=== PATIENT | female | born 1955 | race African-American/Black ===

== ENCOUNTER 2016-08-14 09:51 | Emergency (ER) | payer MEDICARE, MEDICAID ==
[~2016-08-14] VITALS: Ht 162.6 cm; Wt 66.1 kg
[~2016-08-14 09:51] MED LIST: ACET1TAB14 PO; CARI350T27 PO; GABA-531 PO; TEMA30CA PO
[2016-08-14] MEDS ORDERED: MORPHINE SULFATE 4 MG/ML CPJ (NOT FOR IM USE) IV STA (10:45)
[2016-08-14] MEDS ORDERED: SODIUM CHLORIDE 0.9% 1,000 ML IV ONE (10:45)
[2016-08-14] MEDS ORDERED: ONDANSETRON HCL 4MG/2ML VIAL IV STA (10:45)
[2016-08-14 10:59] LABS: BASOPHILS % 0.8 % (0.0-2.0); HEMATOCRIT. 36.1 % (36.0-48.0); HEMOGLOBIN. 12.3 g/dL (12.0-16.0); MEAN CORPUSCULAR HEMOGLOBIN 32.1 pg (28.0-32.0); MEAN CORPUSCULAR VOLUME 94.4 fL (81.0-99.0); MEAN PLATELET VOLUME 6.7 fl (7.4-10.4); MONOCYTES % 10.6 % (2.0-8.0); NEUTROPHILS % 68.6 % (40.0-76.0); PLATELET 268 x1000/uL (130-400); RED BLOOD CELL COUNT 3.82 mill/uL (4.2-5.4); RED CELL DISTRIBUTION WIDTH 15.7 % (11.6-14.6); WHITE BLOOD COUNT 8.8 x1000/uL (4.5-11.0)
[2016-08-14 11:14] LABS: ALANINE AMINOTRANSFERASE 12 IU/L (13-61); ALBUMIN 3.1 g/dL (3.4-5.0); ANION GAP 16; CALCIUM 8.9 mg/dL (8.5-10.1); CARBON DIOXIDE 24 mEq/L (21-32); CHLORIDE 104 mEq/L (98-107); INDEX HEMOLYSI 1 (1-3); INDEX ICTERIC 1 (1-4); INDEX LIPEMIC 1 (1-3); UREA NITROGEN BLOOD 9 mg/dL (7-21); eGFR > 60 mL/min (>60)
[2016-08-14 13:32] LABS: CLARITY URINE CLEAR (CLEAR); COLOR URINE YELLOW (YELLOW); GLUCOSE URINE NEGATIVE (NEGATIVE); KETONES URINE TRACE (NEGATIVE); LEUKOCYTE ESTERASE URINE NEGATIVE (NEGATIVE); NITRITE URINE NEGATIVE (NEGATIVE); OCCULT BLOOD URINE NEGATIVE (NEGATIVE); PROTEIN URINE TRACE (NEGATIVE)
[2016-08-14 14:11] LABS: MUCUS URINE 2+ /lpf (< = 2+)
[2016-08-14 14:12] LABS: BACTERIA URINE 1+; HYALINE CASTS URINE 0-5 /lpf; SQUAMOUS EPITHELIAL CELL URINE 1+ /lpf (RARE/1+); WBC URINE 0-2 /hpf (0-2)
[2016-08-14 14:13] LABS: RBC URINE NONE SEEN /hpf (0-2)
[2016-08-14 14:32] VITALS: BP 92/57
== END 2016-08-14 15:14 | disposition home or self-care (01) ==
LOC: ER 10:18
DX: R19.7 Diarrhea, unspecified (principal); R11.2 Nausea with vomiting, unspecified; R50.9 Fever, unspecified; M32.9 Systemic lupus erythematosus, unspecified; Z88.8 Allergy status to other drugs, medicaments and biological substances
CPT/HCPCS: 36415; 80053; 81001; 85025; 96361; 96374; 96375; 99285; J2270; J2405; J7030

== ENCOUNTER 2016-10-04 01:09 | Emergency (ER) | payer MEDICARE, MEDICAID ==
[~2016-10-04] VITALS: Ht 165.1 cm; Wt 63.0 kg
[2016-10-04] MEDS ORDERED: MORPHINE SULFATE 4 MG/ML CPJ (NOT FOR IM USE) IV STA (01:42)
[2016-10-04] MEDS ORDERED: ONDANSETRON HCL 4MG/2ML VIAL IV STA (01:42)
[2016-10-04] MEDS ORDERED: SODIUM CHLORIDE 0.9% 1,000 ML IV ONE (01:42)
[2016-10-04 02:00] LABS: BASOPHILS % 1.2 % (0.0-2.0); EOSINOPHILS % 4.1 % (0.0-5.0); HEMATOCRIT. 34.5 % (36.0-48.0); HEMOGLOBIN. 11.6 g/dL (12.0-16.0); LYMPHOCYTES % 49.4 % (20.0-50.0); MEAN CORPUSCULAR HEMOGLOBIN 31.6 pg (28.0-32.0); MEAN CORPUSCULAR VOLUME 94.2 fL (81.0-99.0); MEAN PLATELET VOLUME 6.5 fl (7.4-10.4); NEUTROPHILS % 34.3 % (40.0-76.0); PLATELET 393 x1000/uL (130-400); RED BLOOD CELL COUNT 3.66 mill/uL (4.2-5.4); RED CELL DISTRIBUTION WIDTH 15.6 % (11.6-14.6)
[2016-10-04 02:15] LABS: CARBON DIOXIDE 25 mEq/L (21-32); CHLORIDE 111 mEq/L (98-107); TROPONIN I < 0.02 ng/mL (0.00-0.04)
[2016-10-04] MEDS ORDERED: MORPHINE SULFATE 4 MG/ML CPJ (NOT FOR IM USE) IV ONE ×2 (03:15→05:30)
[2016-10-04 06:28] VITALS: BP 113/57
== END 2016-10-04 07:24 | disposition home or self-care (01) ==
LOC: ER 01:09 → CANBEDREQ 07:36
DX: R51 Headache (principal); R53.1 Weakness; I10 Essential (primary) hypertension; M19.90 Unspecified osteoarthritis, unspecified site; M32.9 Systemic lupus erythematosus, unspecified; Z98.890 Other specified postprocedural states; Z88.8 Allergy status to other drugs, medicaments and biological substances; W18.30XA Fall on same level, unspecified, initial encounter; Y93.01 Activity, walking, marching and hiking; Y92.000 Kitchen of unspecified non-institutional (private) residence as the place of occurrence of the external cause; Y99.8 Other external cause status
CPT/HCPCS: 36415; 71010; 80053; 84484; 85025; 93005; 96361; 96374; 96375; 96376; 99285; J2270; J2405; J7030

== ENCOUNTER 2016-11-02 05:53 | Emergency (ER) | payer MEDICARE, MEDICAID ==
[~2016-11-02] VITALS: Ht 157.5 cm; Wt 55.0 kg
[2016-11-02] MEDS ORDERED: SODIUM CHLORIDE 0.9% 500 ML IV ONE (06:19)
[2016-11-02] MEDS ORDERED: KETOROLAC 15MG/ML VIAL IV ONE (06:30)
[2016-11-02 07:03] LABS: BASOPHILS % 1.4 % (0.0-2.0); EOSINOPHILS % 4.4 % (0.0-5.0); HEMATOCRIT. 30.7 % (36.0-48.0); LYMPHOCYTES % 40.3 % (20.0-50.0); MEAN CORPUSCULAR HEMOGLOBIN 30.2 pg (28.0-32.0); MEAN CORPUSCULAR VOLUME 92.8 fL (81.0-99.0); MEAN PLATELET VOLUME 6.5 fl (7.4-10.4); MONOCYTES % 13.2 % (2.0-8.0); NEUTROPHILS % 40.7 % (40.0-76.0); PLATELET 281 x1000/uL (130-400); RED BLOOD CELL COUNT 3.31 mill/uL (4.2-5.4); RED CELL DISTRIBUTION WIDTH 16.1 % (11.6-14.6)
[2016-11-02 07:11] LABS: PARTIAL THROMBOPLASTIN TIME 28.8 sec (24.0-34.0); PROTHROMBIN TIME 10.4 sec
[2016-11-02 07:17] LABS: CARBON DIOXIDE 25 mEq/L (21-32); CHLORIDE 107 mEq/L (98-107)
[2016-11-02 07:20] LABS: TROPONIN I < 0.02 ng/mL (0.00-0.04)
[2016-11-02] MEDS ORDERED: MORPHINE SULFATE 2 MG/ML CPJ (NOT FOR IM USE) IV ONE (07:45)
[2016-11-02] MEDS ORDERED: ONDANSETRON HCL 4MG/2ML VIAL IV ONE (07:45)
[2016-11-02 10:59] VITALS: BP 120/77
== END 2016-11-02 11:40 | disposition home or self-care (01) ==
LOC: ER 05:53
DX: R52 Pain, unspecified (principal); M06.9 Rheumatoid arthritis, unspecified; M32.9 Systemic lupus erythematosus, unspecified; F17.290 Nicotine dependence, other tobacco product, uncomplicated; K75.9 Inflammatory liver disease, unspecified; Z90.89 Acquired absence of other organs; Z96.659 Presence of unspecified artificial knee joint; Z88.8 Allergy status to other drugs, medicaments and biological substances; W07.XXXA Fall from chair, initial encounter
CPT/HCPCS: 36415; 71010; 80053; 83690; 84484; 85025; 85610; 85730; 93005; 96361; 96374; 96375; 99285; J1885; J2270; J2405; J7030; J7040

== ENCOUNTER 2017-02-09 01:46 | Emergency (ER) | payer MEDICARE, MEDICAID ==
[~2017-02-09] VITALS: Ht 157.5 cm; Wt 54.0 kg
[2017-02-09] MEDS ORDERED: KETOROLAC 30MG/ML VIAL IV STA (01:53)
[2017-02-09] MEDS ORDERED: SODIUM CHLORIDE 0.9% 1,000 ML IV ONE (01:53)
[2017-02-09 02:11] LABS: HEMATOCRIT. 28.9 % (36.0-48.0); HEMOGLOBIN. 9.3 g/dL (12.0-16.0); MEAN CORPUSCULAR HEMOGLOBIN 28.9 pg (28.0-32.0); MEAN CORPUSCULAR VOLUME 89.4 fL (81.0-99.0); MEAN PLATELET VOLUME 6.3 fl (7.4-10.4); PLATELET 372 x1000/uL (130-400); RED BLOOD CELL COUNT 3.23 mill/uL (4.2-5.4); RED CELL DISTRIBUTION WIDTH 17.5 % (11.6-14.6)
[2017-02-09 02:17] LABS: CHLORIDE 109 mEq/L (98-107)
[2017-02-09 02:19] LABS: PROTHROMBIN TIME 10.7 sec (9.4-11.6)
[2017-02-09 02:25] LABS: CARBON DIOXIDE 26 mEq/L (21-32); ETHANOL BLOOD 162 mg/dL
[2017-02-09 04:10] LABS: PLATELET ESTIMATE NORMAL
[2017-02-09 05:50] VITALS: BP 126/77
== END 2017-02-09 06:22 | disposition home or self-care (01) ==
LOC: ER 01:47
DX: T51.0X1A Toxic effect of ethanol, accidental (unintentional), initial encounter (principal); M54.5 Low back pain; R00.0 Tachycardia, unspecified; M19.90 Unspecified osteoarthritis, unspecified site; F17.210 Nicotine dependence, cigarettes, uncomplicated; M32.9 Systemic lupus erythematosus, unspecified; Z88.4 Allergy status to anesthetic agent; Y90.6 Blood alcohol level of 120-199 mg/100 ml; W01.0XXA Fall on same level from slipping, tripping and stumbling without subsequent striking against object, initial encounter; Y93.89 Activity, other specified; Y92.018 Other place in single-family (private) house as the place of occurrence of the external cause
CPT/HCPCS: 36415; 72131; 80053; 85025; 85610; 93005; 96361; 96374; 99285; G0482; J1885; J7030

== ENCOUNTER 2017-02-10 00:47 | Emergency (ER) | payer MEDICARE, MEDICAID ==
[~2017-02-10] VITALS: Ht 167.6 cm; Wt 72.0 kg
[2017-02-10] MEDS ORDERED: FOLIC ACID 1 MG, THIAMINE HCL 100 MG, MVI, ADULT NO.1 10 ML in DEXTROSE 5% WATER 1,000 ML IV ONE ×4 (04:00)
[2017-02-10] MEDS ORDERED: HYDROCODONE/APAP 7.5/325MG 1 TAB TABLET PO ONE (04:00)
[2017-02-10 04:12] LABS: BASOPHILS % 0.9 % (0.0-2.0); EOSINOPHILS % 3.7 % (0.0-5.0); HEMATOCRIT. 31.9 % (36.0-48.0); HEMOGLOBIN. 10.5 g/dL (12.0-16.0); LYMPHOCYTES % 21.9 % (20.0-50.0); MEAN CORPUSCULAR HEMOGLOBIN 29.1 pg (28.0-32.0); MEAN CORPUSCULAR VOLUME 88.7 fL (81.0-99.0); MEAN PLATELET VOLUME 6.3 fl (7.4-10.4); MONOCYTES % 10.8 % (2.0-8.0); NEUTROPHILS % 62.7 % (40.0-76.0); PLATELET 440 x1000/uL (130-400); RED CELL DISTRIBUTION WIDTH 17.5 % (11.6-14.6)
[2017-02-10 04:22] LABS: CLARITY URINE CLEAR (CLEAR); COLOR URINE YELLOW (YELLOW); GLUCOSE URINE NEGATIVE (NEGATIVE); KETONES URINE NEGATIVE (NEGATIVE); LEUKOCYTE ESTERASE URINE NEGATIVE (NEGATIVE); NITRITE URINE NEGATIVE (NEGATIVE); OCCULT BLOOD URINE NEGATIVE (NEGATIVE); PH URINE 6.5 (4.5-8.0); PROTEIN URINE NEGATIVE (NEGATIVE); SPECIFIC GRAVITY URINE 1.011 (1.005-1.030); UROBILINOGEN URINE 0.2 E.U./dL (0.2-1.0)
[2017-02-10] MEDS ORDERED: [UNRECOGNIZED DRUG - REMARK] IV ONE ×4 (04:30)
[2017-02-10 04:37] LABS: ETHANOL BLOOD 91 mg/dL
[2017-02-10 04:48] LABS: CARBON DIOXIDE 26 mEq/L (21-32); CHLORIDE 109 mEq/L (98-107)
[2017-02-10] MEDS ORDERED: SODIUM CHLORIDE 0.9% 1,000 ML IV ONE (05:06)
[2017-02-10 05:24] LABS: *AMPHETAMINES SCREEN URINE NEGATIVE (NEGATIVE); *BARBITURATES SCREEN URINE NEGATIVE (NEGATIVE); *BENZODIAZEPINES SCREEN URINE NEGATIVE (NEGATIVE); *COCAINE SCREEN URINE NEGATIVE (NEGATIVE); CANNABINOID URINE SCREEN NEGATIVE (NEGATIVE); METHADONE URINE SCREEN NEGATIVE (NEGATIVE); OPIATES URINE SCREEN NEGATIVE (NEGATIVE); PHENCYCLIDINE URINE SCREEN NEGATIVE (NEGATIVE)
[2017-02-10] MEDS ORDERED: ONDANSETRON HCL 4MG/2ML VIAL IV ONE (05:30)
[2017-02-10] MEDS ORDERED: MORPHINE SULFATE 4 MG/ML CPJ (NOT FOR IM USE) IV ONE (05:30)
[2017-02-10] MEDS ORDERED: IOHEXOL-350 100 ML BOTTLE ONE (08:13)
[2017-02-10 09:45] VITALS: BP 127/66
== END 2017-02-10 18:01 | disposition short-term general hospital (02) ==
LOC: ER 00:47
DX: S06.6X0A Traumatic subarachnoid hemorrhage without loss of consciousness, initial encounter (principal); M32.9 Systemic lupus erythematosus, unspecified; W01.0XXA Fall on same level from slipping, tripping and stumbling without subsequent striking against object, initial encounter; Z88.8 Allergy status to other drugs, medicaments and biological substances
CPT/HCPCS: 36415; 70450; 70496; 71010; 72125; 74177; 80048; 80305; 81003; 85025; 96365; 96366; 96375; 99285; G0482; J2270; J2405; J3411; J3490; J7030; Q9967; J7070

== ENCOUNTER 2017-03-01 00:36 | Emergency (ER) | payer MEDICARE, MEDICAID ==
[~2017-03-01] VITALS: Ht 157.5 cm; Wt 66.0 kg
[2017-03-01 00:46] VITALS: BP 142/76
[2017-03-01] MEDS ORDERED: ACETAMINOPHEN 325MG TABLET PO ONE (01:45)
== END 2017-03-01 03:31 | disposition home or self-care (01) ==
LOC: ER 00:36
DX: S93.401A Sprain of unspecified ligament of right ankle, initial encounter (principal); S93.601A Unspecified sprain of right foot, initial encounter; M32.9 Systemic lupus erythematosus, unspecified; M19.90 Unspecified osteoarthritis, unspecified site; Z88.8 Allergy status to other drugs, medicaments and biological substances; X58.XXXA Exposure to other specified factors, initial encounter; Y93.89 Activity, other specified; Y92.89 Other specified places as the place of occurrence of the external cause; Y99.8 Other external cause status
CPT/HCPCS: 73610; 73630; 99284

== ENCOUNTER 2017-03-11 04:01 | Emergency (ER) | payer MEDICARE, MEDICAID ==
[~2017-03-11] VITALS: Ht 172.7 cm; Wt 59.0 kg
[2017-03-11] MEDS ORDERED: LIDOCAINE 5% PATCH TOP SCH (04:15)
[2017-03-11 05:55] VITALS: BP 127/83
== END 2017-03-11 05:54 | disposition home or self-care (01) ==
LOC: ER 04:01
DX: S43.401A Unspecified sprain of right shoulder joint, initial encounter (principal); M32.9 Systemic lupus erythematosus, unspecified; S46.911A Strain of unspecified muscle, fascia and tendon at shoulder and upper arm level, right arm, initial encounter; F17.200 Nicotine dependence, unspecified, uncomplicated; W01.0XXA Fall on same level from slipping, tripping and stumbling without subsequent striking against object, initial encounter; Y93.9 Activity, unspecified; Y92.9 Unspecified place or not applicable; Z88.8 Allergy status to other drugs, medicaments and biological substances; Z96.659 Presence of unspecified artificial knee joint
CPT/HCPCS: 73030; 99284; A4565

== ENCOUNTER 2017-05-28 06:31 | Emergency (ER) | payer MEDICARE, MEDICAID ==
[~2017-05-28] VITALS: Ht 160 cm; Wt 61.0 kg
[2017-05-28] MEDS ORDERED: ONDANSETRON HCL 4MG/2ML VIAL IV STA (06:48)
[2017-05-28] MEDS ORDERED: MORPHINE SULFATE 4 MG/ML CPJ (NOT FOR IM USE) IV STA (06:48)
[2017-05-28] MEDS ORDERED: SODIUM CHLORIDE 0.9% 1,000 ML IV ONE (06:48)
[2017-05-28] MEDS ORDERED: METHYLPREDNISOLONE SOD SUCC 125 MG/2 ML VIAL IV ONE (07:00)
[2017-05-28 07:41] LABS: HEMATOCRIT. 32.8 % (36.0-48.0); HEMOGLOBIN. 10.9 g/dL (12.0-16.0); MEAN CORPUSCULAR HEMOGLOBIN 28.8 pg (28.0-32.0); MEAN CORPUSCULAR VOLUME 86.9 fL (81.0-99.0); MEAN PLATELET VOLUME 6.8 fl (7.4-10.4); PLATELET 275 x1000/uL (130-400); RED BLOOD CELL COUNT 3.77 mill/uL (4.2-5.4); RED CELL DISTRIBUTION WIDTH 21.9 % (11.6-14.6)
[2017-05-28 07:47] LABS: INR 1.1; PROTHROMBIN TIME 10.9 sec (9.4-11.6)
[2017-05-28 07:56] LABS: CHLORIDE 104 mEq/L (98-107); TROPONIN I < 0.02 ng/mL (0.00-0.04)
[2017-05-28 08:57] LABS: PLATELET ESTIMATE NORMAL
[2017-05-28 10:02] LABS: CLARITY URINE CLEAR (CLEAR); COLOR URINE YELLOW (YELLOW); KETONES URINE TRACE (NEGATIVE); LEUKOCYTE ESTERASE URINE NEGATIVE (NEGATIVE); NITRITE URINE NEGATIVE (NEGATIVE); OCCULT BLOOD URINE NEGATIVE (NEGATIVE); PH URINE 5.5 (4.5-8.0); PROTEIN URINE 1+ (NEGATIVE); SPECIFIC GRAVITY URINE 1.023 (1.005-1.030); UROBILINOGEN URINE 0.2 E.U./dL (0.2-1.0)
[2017-05-28 11:15] VITALS: BP 133/71
== END 2017-05-28 11:33 | disposition home or self-care (01) ==
LOC: ER 06:31
DX: M32.9 Systemic lupus erythematosus, unspecified (principal); M19.90 Unspecified osteoarthritis, unspecified site; F10.20 Alcohol dependence, uncomplicated; Z87.891 Personal history of nicotine dependence; Z88.8 Allergy status to other drugs, medicaments and biological substances
CPT/HCPCS: 36415; 71045; 80053; 81001; 84484; 85025; 85610; 93005; 96361; 96374; 96375; 99285; J2270; J2405; J2930; J7030

== ENCOUNTER 2017-06-23 06:06 | Emergency (ER) | payer MEDICARE, MEDICAID ==
[~2017-06-23] VITALS: Ht 157.5 cm; Wt 61.0 kg
[2017-06-23] MEDS ORDERED: MORPHINE SULFATE 4 MG/ML CPJ (NOT FOR IM USE) IV ONE (06:45)
[2017-06-23] MEDS ORDERED: ONDANSETRON HCL 4MG/2ML VIAL IV ONE (06:45)
[2017-06-23 07:10] LABS: HEMATOCRIT. 33.3 % (36.0-48.0); HEMOGLOBIN. 10.8 g/dL (12.0-16.0); MEAN CORPUSCULAR HEMOGLOBIN 27.6 pg (28.0-32.0); MEAN CORPUSCULAR VOLUME 85.2 fL (81.0-99.0); MEAN PLATELET VOLUME 6.6 fl (7.4-10.4); PLATELET 412 x1000/uL (130-400); RED CELL DISTRIBUTION WIDTH 21.3 % (11.6-14.6)
[2017-06-23 07:13] LABS: PARTIAL THROMBOPLASTIN TIME 28.5 sec (23.4-31.0); PROTHROMBIN TIME 10.7 sec (9.4-11.6)
[2017-06-23 07:15] LABS: CHLORIDE 105 mEq/L (98-107)
[2017-06-23 07:23] LABS: CREATINE KINASE 224 IU/L (26-192); CREATINE KINASE MB FRACTION 3.7 ng/mL (0.5-3.6)
[2017-06-23] MEDS ORDERED: LORAZEPAM 1MG TABLET PO ONE (07:45)
[2017-06-23 07:57] LABS: PLATELET ESTIMATE INCREASED
[2017-06-23] MEDS ORDERED: SODIUM CHLORIDE 0.9% 1,000 ML IV ONE (08:09)
[2017-06-23 09:59] LABS: CLARITY URINE CLOUDY (CLEAR); COLOR URINE YELLOW (YELLOW); KETONES URINE TRACE (NEGATIVE); LEUKOCYTE ESTERASE URINE NEGATIVE (NEGATIVE); NITRITE URINE NEGATIVE (NEGATIVE); OCCULT BLOOD URINE TRACE (NEGATIVE); PH URINE 5.5 (4.5-8.0); PROTEIN URINE 1+ (NEGATIVE); SPECIFIC GRAVITY URINE 1.022 (1.005-1.030); UROBILINOGEN URINE 0.2 E.U./dL (0.2-1.0)
[2017-06-23 13:01] LABS: CHLORIDE 107 mEq/L (98-107)
[2017-06-23 13:42] VITALS: BP 132/81
== END 2017-06-23 13:49 | disposition home or self-care (01) ==
LOC: ER 06:06
DX: M32.9 Systemic lupus erythematosus, unspecified (principal); R03.0 Elevated blood-pressure reading, without diagnosis of hypertension; M19.90 Unspecified osteoarthritis, unspecified site
CPT/HCPCS: 36415; 71045; 80048; 80053; 81003; 82550; 82553; 83690; 83735; 84484; 85025; 85610; 85730; 93005; 96361; 96374; 96375; 99285; J2270; J2405; J7030

== ENCOUNTER 2017-06-25 06:33 | Emergency (ER) | payer MEDICARE, MEDICAID ==
[~2017-06-25] VITALS: Ht 167.6 cm; Wt 60.0 kg
[2017-06-25] MEDS ORDERED: ONDANSETRON HCL 4MG/2ML VIAL IV STA (10:09)
[2017-06-25] MEDS ORDERED: MORPHINE SULFATE 4 MG/ML CPJ (NOT FOR IM USE) IV STA (10:09)
[2017-06-25 11:29] LABS: BASOPHILS % 1.9 % (0.0-2.0); EOSINOPHILS % 1.8 % (0.0-5.0); HEMATOCRIT. 31.5 % (36.0-48.0); HEMOGLOBIN. 10.4 g/dL (12.0-16.0); LYMPHOCYTES % 29.5 % (20.0-50.0); MEAN CORPUSCULAR HEMOGLOBIN 28.5 pg (28.0-32.0); MONOCYTES % 14.3 % (2.0-8.0); NEUTROPHILS % 52.5 % (40.0-76.0); RED BLOOD CELL COUNT 3.66 mill/uL (4.2-5.4)
[2017-06-25 11:36] LABS: PROTHROMBIN TIME 10.7 sec (9.4-11.6)
[2017-06-25 11:42] LABS: CHLORIDE 105 mEq/L (98-107)
[2017-06-25 11:48] LABS: PLATELET 242 x1000/uL (130-400)
[2017-06-25] MEDS ORDERED: KETOROLAC 30MG/ML VIAL IV ONE (12:15)
[2017-06-25 12:37] LABS: CLARITY URINE CLEAR (CLEAR); COLOR URINE YELLOW (YELLOW); KETONES URINE 2+ (NEGATIVE); LEUKOCYTE ESTERASE URINE NEGATIVE (NEGATIVE); NITRITE URINE NEGATIVE (NEGATIVE); OCCULT BLOOD URINE NEGATIVE (NEGATIVE); PH URINE 5.5 (4.5-8.0); PROTEIN URINE 1+ (NEGATIVE); SPECIFIC GRAVITY URINE 1.023 (1.005-1.030); UROBILINOGEN URINE 0.2 E.U./dL (0.2-1.0)
[2017-06-25 13:50] VITALS: BP 149/78
== END 2017-06-25 14:00 | disposition home or self-care (01) ==
LOC: ER 06:47 → CANBEDREQ 16:46
DX: M32.9 Systemic lupus erythematosus, unspecified (principal); B34.9 Viral infection, unspecified; M19.90 Unspecified osteoarthritis, unspecified site; R79.1 Abnormal coagulation profile; Z88.8 Allergy status to other drugs, medicaments and biological substances
CPT/HCPCS: 36415; 74176; 80053; 81003; 85025; 85610; 96374; 96375; 99285; J1885; J2270; J2405

== ENCOUNTER 2017-06-25 21:22 | Emergency (ER) | payer MEDICARE, MEDICAID ==
[~2017-06-25] VITALS: Ht 160 cm; Wt 59.0 kg
[2017-06-25] MEDS ORDERED: SODIUM CHLORIDE 0.9% 1,000 ML IV ONE (23:43)
[2017-06-25] MEDS ORDERED: MORPHINE SULFATE 4 MG/ML CPJ (NOT FOR IM USE) IV STA (23:43)
[2017-06-25] MEDS ORDERED: NAPROXEN 500MG TABLET PO ONE (23:45)
[2017-06-25] MEDS ORDERED: KETOROLAC 30MG/ML VIAL IV STA (23:54)
[2017-06-26 00:15] VITALS: BP 125/80
== END 2017-06-26 01:39 | disposition home or self-care (01) ==
LOC: ER 21:52
DX: M25.519 Pain in unspecified shoulder (principal); M32.9 Systemic lupus erythematosus, unspecified; I10 Essential (primary) hypertension; Z96.652 Presence of left artificial knee joint; Z88.8 Allergy status to other drugs, medicaments and biological substances
CPT/HCPCS: 36415; 74176; 80053; 81003; 85025; 85610; 96361; 96374; 96375; 99285; J1885; J2270; J2405; J7030; 99284

== ENCOUNTER 2017-07-13 23:34 | Emergency (ER) | payer MEDICARE, MEDICAID ==
[~2017-07-13] VITALS: Ht 162.6 cm; Wt 68.0 kg
[2017-07-14] MEDS ORDERED: MORPHINE SULFATE 4 MG/ML CPJ (NOT FOR IM USE) IV STA (00:48)
[2017-07-14] MEDS ORDERED: SODIUM CHLORIDE 0.9% 1,000 ML IV ONE (00:48)
[2017-07-14] MEDS ORDERED: ONDANSETRON HCL 4MG/2ML VIAL IV STA (00:48)
[2017-07-14 01:08] LABS: HEMATOCRIT. 31.4 % (36.0-48.0); HEMOGLOBIN. 10.2 g/dL (12.0-16.0); MEAN CORPUSCULAR HEMOGLOBIN 28.7 pg (28.0-32.0); MEAN CORPUSCULAR VOLUME 88.7 fL (81.0-99.0); MEAN PLATELET VOLUME 6.6 fl (7.4-10.4); PLATELET 176 x1000/uL (130-400); RED BLOOD CELL COUNT 3.54 mill/uL (4.2-5.4)
[2017-07-14 01:18] LABS: CHLORIDE 106 mEq/L (98-107)
[2017-07-14] MEDS ORDERED: DIAZEPAM 5 MG TABLET PO ONE (02:45)
[2017-07-14 03:47] LABS: PLATELET ESTIMATE NORMAL
[2017-07-14] MEDS ORDERED: HYDROCODONE/ACETAMINOPHEN 5/325MG TABLET PO ONE (04:00)
[2017-07-14 07:05] VITALS: BP 121/74
== END 2017-07-14 07:09 | disposition home or self-care (01) ==
LOC: ER 23:34
DX: M32.9 Systemic lupus erythematosus, unspecified (principal); M19.90 Unspecified osteoarthritis, unspecified site; M79.1 Myalgia; G56.00 Carpal tunnel syndrome, unspecified upper limb; Z88.5 Allergy status to narcotic agent
CPT/HCPCS: 36415; 71045; 80053; 83880; 84484; 85025; 96361; 96374; 96375; 99285; C1893; J2270; J2405; J7030

== ENCOUNTER 2017-07-27 23:30 | Emergency (ER) | payer MEDICARE, MEDICAID | END 2017-07-27 23:53 | disposition left against medical advice (07) | LOC: ER 23:31 | DX: Z53.21 Procedure and treatment not carried out due to patient leaving prior to being seen by health care provider (principal) ==

== ENCOUNTER 2017-07-28 02:17 | Emergency (ER) | payer MEDICARE, MEDICAID ==
[~2017-07-28] VITALS: Ht 167.6 cm; Wt 68.0 kg
[2017-07-28] MEDS ORDERED: KETOROLAC 30MG/ML VIAL IM ONE (07:30)
[2017-07-28] MEDS ORDERED: GABAPENTIN 300MG CAPSULE PO ONE (07:30)
[2017-07-28] MEDS ORDERED: KETOROLAC 30MG/ML VIAL IV ONE (07:30)
[2017-07-28] MEDS ORDERED: ONDANSETRON 4MG ODT PO ONE (08:00)
[2017-07-28 10:24] VITALS: BP 118/72
== END 2017-07-28 10:49 | disposition home or self-care (01) ==
LOC: ER 02:25
DX: M79.1 Myalgia (principal); M32.9 Systemic lupus erythematosus, unspecified; M19.90 Unspecified osteoarthritis, unspecified site; Z88.8 Allergy status to other drugs, medicaments and biological substances
CPT/HCPCS: 96372; 99283; J1885; Q0162

== ENCOUNTER 2017-09-04 07:50 | Emergency (ER) | payer MEDICARE, MEDICAID ==
[~2017-09-04] VITALS: Ht 160 cm; Wt 50.0 kg
[2017-09-04] MEDS ORDERED: MORPHINE SULFATE 4 MG/ML CPJ (NOT FOR IM USE) IV STA (08:43)
[2017-09-04] MEDS ORDERED: ONDANSETRON HCL 4MG/2ML VIAL IV STA (08:43)
[2017-09-04] MEDS ORDERED: MORPHINE SULFATE 4 MG/ML CPJ (NOT FOR IM USE) IV ONE ×2 (08:54→11:15)
[2017-09-04 09:01] LABS: BASOPHILS % 0.6 % (0.0-2.0); EOSINOPHILS % 0.9 % (0.0-5.0); HEMATOCRIT. 26.8 % (36.0-48.0); HEMOGLOBIN. 8.8 g/dL (12.0-16.0); LYMPHOCYTES % 22.5 % (20.0-50.0); MEAN CORPUSCULAR HEMOGLOBIN 29.1 pg (28.0-32.0); MEAN PLATELET VOLUME 6.1 fl (7.4-10.4); MONOCYTES % 11.9 % (2.0-8.0); NEUTROPHILS % 64.1 % (40.0-76.0); PLATELET 259 x1000/uL (130-400); RED BLOOD CELL COUNT 3.04 mill/uL (4.2-5.4); RED CELL DISTRIBUTION WIDTH 19.6 % (11.6-14.6)
[2017-09-04 09:08] LABS: CHLORIDE 101 mEq/L (98-107)
[2017-09-04 09:11] LABS: INR 1.1; PROTHROMBIN TIME 11.7 sec (9.4-11.6)
[2017-09-04] MEDS ORDERED: ONDANSETRON HCL 4MG/2ML VIAL ONE (09:30)
[2017-09-04 12:29] LABS: CLARITY URINE CLEAR (CLEAR); COLOR URINE YELLOW (YELLOW); KETONES URINE NEGATIVE (NEGATIVE); LEUKOCYTE ESTERASE URINE NEGATIVE (NEGATIVE); NITRITE URINE NEGATIVE (NEGATIVE); OCCULT BLOOD URINE NEGATIVE (NEGATIVE); PROTEIN URINE NEGATIVE (NEGATIVE); SPECIFIC GRAVITY URINE 1.011 (1.005-1.030)
[2017-09-04] MEDS ORDERED: IBUPROFEN 200MG TABLET PO ONE (13:15)
[2017-09-04 17:08] VITALS: BP 140/75
== END 2017-09-04 17:09 | disposition home or self-care (01) ==
LOC: ER 08:05
DX: M32.9 Systemic lupus erythematosus, unspecified (principal); I67.82 Cerebral ischemia; R00.0 Tachycardia, unspecified; W18.39XA Other fall on same level, initial encounter; Y93.89 Activity, other specified; Y92.89 Other specified places as the place of occurrence of the external cause; Y99.8 Other external cause status; Z87.891 Personal history of nicotine dependence; Z88.8 Allergy status to other drugs, medicaments and biological substances
CPT/HCPCS: 36415; 70450; 71045; 73030; 73060; 80053; 81003; 83880; 84484; 85025; 85610; 93005; 96372; 96374; 99285; J2270; J2405

== ENCOUNTER 2017-09-08 03:38 | Emergency (ER) | payer MEDICAID, MEDICARE ==
[~2017-09-08] VITALS: Ht 157.5 cm; Wt 55.0 kg
[2017-09-08] MEDS ORDERED: KETOROLAC 60MG/2ML VIAL IM ONE (07:30)
[2017-09-08 09:06] VITALS: BP 128/69
== END 2017-09-08 09:11 | disposition home or self-care (01) ==
LOC: EDBD → ER 04:37
DX: G89.29 Other chronic pain (principal); M32.9 Systemic lupus erythematosus, unspecified; M06.9 Rheumatoid arthritis, unspecified; G62.9 Polyneuropathy, unspecified; Z87.891 Personal history of nicotine dependence; Z88.4 Allergy status to anesthetic agent
CPT/HCPCS: 96372; 99283; J1885

== ENCOUNTER 2017-09-22 03:40 | Emergency (ER) | payer MEDICARE, MEDICAID ==
[~2017-09-22] VITALS: Ht 157.5 cm; Wt 64.0 kg
[2017-09-22] MEDS ORDERED: KETOROLAC 30MG/ML VIAL IM STA (06:17)
[2017-09-22] MEDS ORDERED: ONDANSETRON 4MG ODT PO ONE (06:30)
[2017-09-22 06:47] LABS: HEMATOCRIT. 30.1 % (36.0-48.0); HEMOGLOBIN. 9.8 g/dL (12.0-16.0); MEAN CORPUSCULAR HEMOGLOBIN 28.7 pg (28.0-32.0); MEAN CORPUSCULAR VOLUME 87.6 fL (81.0-99.0); MEAN PLATELET VOLUME 6.6 fl (7.4-10.4); PLATELET 243 x1000/uL (130-400); RED BLOOD CELL COUNT 3.43 mill/uL (4.2-5.4); RED CELL DISTRIBUTION WIDTH 18.7 % (11.6-14.6)
[2017-09-22 06:53] LABS: CHLORIDE 108 mEq/L (98-107)
[2017-09-22 08:24] VITALS: BP 116/72
[2017-09-22 09:06] LABS: PLATELET ESTIMATE NORMAL
== END 2017-09-22 08:29 | disposition home or self-care (01) ==
LOC: ER 03:49
DX: G89.29 Other chronic pain (principal); M79.1 Myalgia; D64.9 Anemia, unspecified; R03.0 Elevated blood-pressure reading, without diagnosis of hypertension; M32.9 Systemic lupus erythematosus, unspecified; M06.9 Rheumatoid arthritis, unspecified; Z88.8 Allergy status to other drugs, medicaments and biological substances; Z88.6 Allergy status to analgesic agent; Z79.899 Other long term (current) drug therapy
CPT/HCPCS: 36415; 80053; 85025; 96372; 99284; J1885; Q0162

== ENCOUNTER 2017-10-18 08:18 | Emergency (ER) | payer MEDICARE, MEDICAID ==
[~2017-10-18] VITALS: Ht 157.5 cm; Wt 55.0 kg
[2017-10-18 08:20] VITALS: BP 115/92
[2017-10-18] MEDS ORDERED: SODIUM CHLORIDE 0.9% 1,000 ML IV ONE (08:29)
[2017-10-18] MEDS ORDERED: ONDANSETRON HCL 4MG/2ML VIAL IV STA (08:33)
[2017-10-18 09:26] LABS: BASOPHILS % 1.3 % (0.0-2.0); EOSINOPHILS % 2.8 % (0.0-5.0); HEMATOCRIT. 27.4 % (36.0-48.0); HEMOGLOBIN. 8.8 g/dL (12.0-16.0); LYMPHOCYTES % 29.2 % (20.0-50.0); MEAN CORPUSCULAR HEMOGLOBIN 27.8 pg (28.0-32.0); MEAN CORPUSCULAR VOLUME 85.9 fL (81.0-99.0); MEAN PLATELET VOLUME 6.6 fl (7.4-10.4); MONOCYTES % 13.5 % (2.0-8.0); NEUTROPHILS % 53.2 % (40.0-76.0); PLATELET 133 x1000/uL (130-400); RED BLOOD CELL COUNT 3.19 mill/uL (4.2-5.4); RED CELL DISTRIBUTION WIDTH 21.6 % (11.6-14.6)
[2017-10-18 09:32] LABS: CHLORIDE 108 mEq/L (98-107)
[2017-10-18] MEDS ORDERED: ONDANSETRON HCL 4MG TABLET PO ONE (11:00)
== END 2017-10-18 11:00 | disposition home or self-care (01) ==
LOC: ER 08:53
DX: R53.1 Weakness (principal); M32.9 Systemic lupus erythematosus, unspecified; F41.9 Anxiety disorder, unspecified; Z88.4 Allergy status to anesthetic agent
CPT/HCPCS: 36415; 80053; 85025; 96374; 99285; C1893; J2405; J7030; Q0162

== ENCOUNTER 2017-11-06 23:20 | Emergency (ER) | payer MEDICARE, MEDICAID ==
[~2017-11-06] VITALS: Ht 160 cm; Wt 55.0 kg
[2017-11-07] MEDS ORDERED: ONDANSETRON HCL 4MG/2ML VIAL IV STA (01:02)
[2017-11-07] MEDS ORDERED: MORPHINE SULFATE 4 MG/ML CPJ (NOT FOR IM USE) IV STA (01:02)
[2017-11-07] MEDS ORDERED: SODIUM CHLORIDE 0.9% 1,000 ML IV ONE (01:02)
[2017-11-07 01:25] LABS: BASOPHILS % 1.2 % (0.0-2.0); EOSINOPHILS % 1.4 % (0.0-5.0); LYMPHOCYTES % 44.5 % (20.0-50.0); MEAN CORPUSCULAR HEMOGLOBIN 28.1 pg (28.0-32.0); MEAN CORPUSCULAR VOLUME 87.4 fL (81.0-99.0); MEAN PLATELET VOLUME 6.5 fl (7.4-10.4); MONOCYTES % 13.2 % (2.0-8.0); NEUTROPHILS % 39.7 % (40.0-76.0); PLATELET 255 x1000/uL (130-400); RED BLOOD CELL COUNT 3.55 mill/uL (4.2-5.4); RED CELL DISTRIBUTION WIDTH 20.4 % (11.6-14.6)
[2017-11-07 01:29] LABS: CHLORIDE 104 mEq/L (98-107)
[2017-11-07] MEDS ORDERED: IOHEXOL-300 100 ML BOTTLE ONE (04:17)
[2017-11-07 04:45] LABS: CLARITY URINE CLEAR (CLEAR); COLOR URINE YELLOW (YELLOW); KETONES URINE NEGATIVE (NEGATIVE); LEUKOCYTE ESTERASE URINE TRACE (NEGATIVE); NITRITE URINE NEGATIVE (NEGATIVE); OCCULT BLOOD URINE 1+ (NEGATIVE); PROTEIN URINE NEGATIVE (NEGATIVE); SPECIFIC GRAVITY URINE 1.019 (1.005-1.030); UROBILINOGEN URINE 0.2 E.U./dL (0.2-1.0)
[2017-11-07 05:42] VITALS: BP 128/68
== END 2017-11-07 05:47 | disposition home or self-care (01) ==
LOC: EDUNIT# 23:20 → ER 23:20
DX: R10.30 Lower abdominal pain, unspecified (principal); R19.7 Diarrhea, unspecified; Z87.891 Personal history of nicotine dependence
CPT/HCPCS: 36415; 74177; 80053; 81003; 85025; 96361; 96374; 96375; 99285; J2270; J2405; J7030; Q9967

== ENCOUNTER 2017-11-15 06:17 | Emergency (ER) | payer MEDICARE, MEDICAID ==
[~2017-11-15] VITALS: Ht 162.6 cm; Wt 59.0 kg
[2017-11-15] MEDS ORDERED: SODIUM CHLORIDE 0.9% 500 ML IV ONE (06:19)
[2017-11-15 06:41] LABS: HEMOGLOBIN. 9.2 g/dL (12.0-16.0); MEAN CORPUSCULAR HEMOGLOBIN 27.9 pg (28.0-32.0); MEAN CORPUSCULAR VOLUME 88.1 fL (81.0-99.0); MEAN PLATELET VOLUME 7.3 fl (7.4-10.4); PLATELET 213 x1000/uL (130-400); RED CELL DISTRIBUTION WIDTH 19.9 % (11.6-14.6)
[2017-11-15 06:47] LABS: INR 1.1
[2017-11-15 07:36] LABS: CHLORIDE 108 mEq/L (98-107)
[2017-11-15 07:41] LABS: ETHANOL BLOOD 162 mg/dL
[2017-11-15 08:04] LABS: COLOR URINE YELLOW (YELLOW); KETONES URINE NEGATIVE (NEGATIVE); LEUKOCYTE ESTERASE URINE NEGATIVE (NEGATIVE); NITRITE URINE NEGATIVE (NEGATIVE); OCCULT BLOOD URINE 1+ (NEGATIVE); PH URINE 5.5 (4.5-8.0); PROTEIN URINE NEGATIVE (NEGATIVE); SPECIFIC GRAVITY URINE 1.006 (1.005-1.030); UROBILINOGEN URINE 0.2 E.U./dL (0.2-1.0)
[2017-11-15 08:05] LABS: CLARITY URINE SL HAZY (CLEAR)
[2017-11-15 08:36] LABS: *AMPHETAMINES SCREEN URINE PRESUMTIVE POSITIVE (NEGATIVE); *BARBITURATES SCREEN URINE NEGATIVE (NEGATIVE); *BENZODIAZEPINES SCREEN URINE NEGATIVE (NEGATIVE); *COCAINE SCREEN URINE PRESUMTIVE POSITIVE (NEGATIVE); METHADONE URINE SCREEN NEGATIVE (NEGATIVE)
[2017-11-15 08:37] LABS: OPIATES URINE SCREEN PRESUMTIVE POSITIVE (NEGATIVE); PHENCYCLIDINE URINE SCREEN NEGATIVE (NEGATIVE)
[2017-11-15 08:38] LABS: CANNABINOID URINE SCREEN NEGATIVE (NEGATIVE)
[2017-11-15 09:13] LABS: PLATELET ESTIMATE NORMAL
[2017-11-15] MEDS ORDERED: MORPHINE SULFATE 4 MG/ML CPJ (NOT FOR IM USE) IV STA (11:06)
[2017-11-15] MEDS ORDERED: ONDANSETRON HCL 4MG/2ML VIAL IV STA (11:06)
[2017-11-15 12:16] LABS: CHLORIDE 111 mEq/L (98-107)
[2017-11-15 13:32] VITALS: BP 131/80
== END 2017-11-15 13:47 | disposition home or self-care (01) ==
LOC: ER 07:02 → EDBD 07:02 → ER 13:47
DX: R10.31 Right lower quadrant pain (principal); R11.0 Nausea; R00.0 Tachycardia, unspecified; K59.00 Constipation, unspecified; R03.0 Elevated blood-pressure reading, without diagnosis of hypertension; F10.20 Alcohol dependence, uncomplicated; Y90.6 Blood alcohol level of 120-199 mg/100 ml; K70.0 Alcoholic fatty liver; M16.11 Unilateral primary osteoarthritis, right hip
CPT/HCPCS: 36415; 71045; 74176; 80053; 80305; 81003; 83690; 84484; 85025; 85610; 96361; 96374; 96375; 99285; G0482; J2270; J2405; J7030

== ENCOUNTER 2017-12-06 01:50 | Emergency (ER) | payer MEDICARE ==
[~2017-12-06] VITALS: Ht 154.9 cm; Wt 64.0 kg
[2017-12-06] MEDS: IBUPROFEN 600MG TABLET PO ONE ×2 (02:47→03:18)
[2017-12-06] MEDS: ACETAMINOPHEN 325MG TABLET PO ONE ×2 (02:47→03:19)
[2017-12-06 04:23] VITALS: BP 120/76
== END 2017-12-06 04:23 | disposition home or self-care (01) ==
LOC: ER 01:50
DX: M19.011 Primary osteoarthritis, right shoulder (principal); G89.29 Other chronic pain; M32.9 Systemic lupus erythematosus, unspecified; Z88.8 Allergy status to other drugs, medicaments and biological substances
CPT/HCPCS: 99283

== ENCOUNTER 2017-12-08 09:18 | Emergency (ER) | payer MEDICARE ==
[~2017-12-08] VITALS: Ht 167.6 cm; Wt 92.0 kg
[2017-12-08] MEDS ORDERED: HYDROCODONE/ACETAMINOPHEN 10/325MG TABLET PO ONE (11:45)
[2017-12-08] MEDS ORDERED: IBUPROFEN 600MG TABLET PO ONE (11:45)
[2017-12-08] MEDS ORDERED: ONDANSETRON 4MG ODT PO ONE (14:30)
[2017-12-08 16:41] VITALS: BP 106/54
== END 2017-12-08 17:00 | disposition home or self-care (01) ==
LOC: ER 09:45
DX: M25.511 Pain in right shoulder (principal); G89.29 Other chronic pain; M19.90 Unspecified osteoarthritis, unspecified site; M32.9 Systemic lupus erythematosus, unspecified; Z88.8 Allergy status to other drugs, medicaments and biological substances
CPT/HCPCS: 73030; 99284; Q0162

== ENCOUNTER 2017-12-09 05:27 | Emergency (ER) | payer MEDICARE ==
[~2017-12-09] VITALS: Ht 157.5 cm; Wt 59.0 kg
[2017-12-09] MEDS ORDERED: BACITRACIN ZINC OINT UDPKT TOP ONE (08:00)
[2017-12-09] MEDS ORDERED: IBUPROFEN 600MG TABLET PO ONE (08:00)
[2017-12-09 08:36] LABS: CLARITY URINE CLEAR (CLEAR); COLOR URINE YELLOW (YELLOW); KETONES URINE TRACE (NEGATIVE); LEUKOCYTE ESTERASE URINE NEGATIVE (NEGATIVE); NITRITE URINE NEGATIVE (NEGATIVE); OCCULT BLOOD URINE NEGATIVE (NEGATIVE); PH URINE 5.5 (4.5-8.0); PROTEIN URINE 1+ (NEGATIVE); SPECIFIC GRAVITY URINE 1.016 (1.005-1.030); UROBILINOGEN URINE 0.2 E.U./dL (0.2-1.0)
[2017-12-09 08:57] LABS: CANNABINOID URINE SCREEN NEGATIVE (NEGATIVE); METHADONE URINE SCREEN NEGATIVE (NEGATIVE); OPIATES URINE SCREEN PRESUMTIVE POSITIVE (NEGATIVE); PHENCYCLIDINE URINE SCREEN NEGATIVE (NEGATIVE)
[2017-12-09 08:58] LABS: *AMPHETAMINES SCREEN URINE NEGATIVE (NEGATIVE); *BARBITURATES SCREEN URINE NEGATIVE (NEGATIVE); *BENZODIAZEPINES SCREEN URINE NEGATIVE (NEGATIVE); *COCAINE SCREEN URINE PRESUMTIVE POSITIVE (NEGATIVE)
[2017-12-09] MEDS ORDERED: ACETAMINOPHEN 325MG TABLET PO ONE (10:30)
[2017-12-09 10:44] VITALS: BP 125/75
== END 2017-12-09 11:24 | disposition home or self-care (01) ==
LOC: ER 05:27
DX: M54.5 Low back pain (principal); J45.909 Unspecified asthma, uncomplicated; Z88.8 Allergy status to other drugs, medicaments and biological substances; Z79.899 Other long term (current) drug therapy
CPT/HCPCS: 80305; 81003; 99284

== ENCOUNTER 2017-12-10 06:07 | Emergency (ER) | payer MEDICARE ==
[~2017-12-10] VITALS: Ht 170.2 cm; Wt 59.0 kg
[2017-12-10] MEDS ORDERED: SODIUM CHLORIDE 0.9% 1,000 ML IV ONE (06:18)
[2017-12-10] MEDS ORDERED: FAMOTIDINE 20MG/2ML VIAL IV STA (06:18)
[2017-12-10 06:54] LABS: BASOPHILS % 1.2 % (0.0-2.0); EOSINOPHILS % 2.5 % (0.0-5.0); HEMATOCRIT. 30.9 % (36.0-48.0); HEMOGLOBIN. 9.9 g/dL (12.0-16.0); LYMPHOCYTES % 19.1 % (20.0-50.0); MEAN CORPUSCULAR HEMOGLOBIN 27.3 pg (28.0-32.0); MEAN CORPUSCULAR VOLUME 85.5 fL (81.0-99.0); MEAN PLATELET VOLUME 7.3 fl (7.4-10.4); MONOCYTES % 11.5 % (2.0-8.0); NEUTROPHILS % 65.7 % (40.0-76.0); PLATELET 239 x1000/uL (130-400); RED BLOOD CELL COUNT 3.61 mill/uL (4.2-5.4); RED CELL DISTRIBUTION WIDTH 20.9 % (11.6-14.6)
[2017-12-10] MEDS ORDERED: KETOROLAC 30MG/ML VIAL IV ONE (07:00)
[2017-12-10 07:01] LABS: CHLORIDE 106 mEq/L (98-107)
[2017-12-10 07:11] VITALS: BP 115/75
[2017-12-10 07:59] LABS: CLARITY URINE CLOUDY (CLEAR); COLOR URINE YELLOW (YELLOW); KETONES URINE TRACE (NEGATIVE); LEUKOCYTE ESTERASE URINE 1+ (NEGATIVE); NITRITE URINE NEGATIVE (NEGATIVE); OCCULT BLOOD URINE 3+ (NEGATIVE); PH URINE 5.5 (4.5-8.0); PROTEIN URINE TRACE (NEGATIVE); SPECIFIC GRAVITY URINE 1.015 (1.005-1.030)
[2017-12-10 08:18] LABS: *AMPHETAMINES SCREEN URINE NEGATIVE (NEGATIVE); *BARBITURATES SCREEN URINE NEGATIVE (NEGATIVE)
[2017-12-10 08:19] LABS: *BENZODIAZEPINES SCREEN URINE NEGATIVE (NEGATIVE); *COCAINE SCREEN URINE PRESUMTIVE POSITIVE (NEGATIVE); METHADONE URINE SCREEN NEGATIVE (NEGATIVE); OPIATES URINE SCREEN PRESUMTIVE POSITIVE (NEGATIVE); PHENCYCLIDINE URINE SCREEN NEGATIVE (NEGATIVE)
[2017-12-10 08:20] LABS: CANNABINOID URINE SCREEN NEGATIVE (NEGATIVE)
== END 2017-12-10 08:43 | disposition home or self-care (01) ==
LOC: ER 06:07
DX: R10.9 Unspecified abdominal pain (principal); F14.129 Cocaine abuse with intoxication, unspecified; N39.0 Urinary tract infection, site not specified; R03.0 Elevated blood-pressure reading, without diagnosis of hypertension; M32.9 Systemic lupus erythematosus, unspecified; F32.9 Major depressive disorder, single episode, unspecified
CPT/HCPCS: 36415; 80053; 80305; 81003; 83690; 85025; 96374; 96375; 99284; J1885; J3490; J7030

== ENCOUNTER 2017-12-12 21:33 | Emergency (ER) | payer MEDICARE ==
[~2017-12-12] VITALS: Ht 157.5 cm; Wt 56.0 kg
[2017-12-12] MEDS ORDERED: KETOROLAC 60MG/2ML VIAL IM ONE (23:00)
[2017-12-13 00:10] VITALS: BP 112/67
== END 2017-12-13 00:15 | disposition home or self-care (01) ==
LOC: ER 21:33
DX: M25.511 Pain in right shoulder (principal); M25.539 Pain in unspecified wrist; G89.29 Other chronic pain; F32.9 Major depressive disorder, single episode, unspecified; M32.9 Systemic lupus erythematosus, unspecified; Z87.891 Personal history of nicotine dependence; Z96.652 Presence of left artificial knee joint
CPT/HCPCS: 96372; 99283; J1885

== ENCOUNTER 2018-01-16 22:08 | Emergency (ER) | payer MEDICARE, MEDICAID ==
[~2018-01-16] VITALS: Ht 162.6 cm; Wt 59.0 kg
[2018-01-16] MEDS ORDERED: IBUPROFEN 600MG TABLET PO ONE (22:30)
[2018-01-17] MEDS ORDERED: TETANUS, DIPHTHERIA, PERTUSSIS VAC/PF 0.5ML (>7YR OLD) IM ONE (00:30)
[2018-01-17] MEDS ORDERED: HYDROCODONE/ACETAMINOPHEN 5/325MG TABLET PO ONE (01:00)
[2018-01-17 05:26] VITALS: BP 104/59
[2018-01-17] MEDS ORDERED: IBUPROFEN 600MG TABLET PO ONE (05:45)
[2018-01-17] MEDS ORDERED: ONDANSETRON 4MG ODT PO ONE (05:45)
== END 2018-01-17 06:40 | disposition home or self-care (01) ==
LOC: ER 22:08
DX: S09.8XXA Other specified injuries of head, initial encounter (principal); S62.501A Fracture of unspecified phalanx of right thumb, initial encounter for closed fracture; W01.0XXA Fall on same level from slipping, tripping and stumbling without subsequent striking against object, initial encounter; Y93.89 Activity, other specified; Y92.89 Other specified places as the place of occurrence of the external cause; Y99.8 Other external cause status; Z88.8 Allergy status to other drugs, medicaments and biological substances
CPT/HCPCS: 29125; 70450; 70486; 72125; 73130; 90471; 90715; 99284; Q0162

== ENCOUNTER 2018-02-06 18:33 | Emergency (ER) | payer MEDICARE, MEDICAID ==
[~2018-02-06] VITALS: Ht 167.6 cm; Wt 75.0 kg
[2018-02-06] MEDS ORDERED: HYDROCODONE/ACETAMINOPHEN 5/325MG TABLET PO ONE (23:45)
[2018-02-07 02:00] VITALS: BP 99/48
== END 2018-02-07 02:30 | disposition home or self-care (01) ==
LOC: ER 19:37
DX: S46.912A Strain of unspecified muscle, fascia and tendon at shoulder and upper arm level, left arm, initial encounter (principal); M25.552 Pain in left hip; M32.9 Systemic lupus erythematosus, unspecified; M19.90 Unspecified osteoarthritis, unspecified site; W01.0XXA Fall on same level from slipping, tripping and stumbling without subsequent striking against object, initial encounter; Y93.9 Activity, unspecified; Y92.9 Unspecified place or not applicable; Z88.8 Allergy status to other drugs, medicaments and biological substances
CPT/HCPCS: 72170; 73030; 99284

== ENCOUNTER 2018-02-07 20:26 | Emergency (ER) | payer MEDICARE, MEDICAID ==
[~2018-02-07] VITALS: Ht 162.6 cm; Wt 59.0 kg
[2018-02-07 23:35] VITALS: BP 130/84
== END 2018-02-08 01:19 | disposition home or self-care (01) ==
LOC: ER 20:26
DX: S16.1XXA Strain of muscle, fascia and tendon at neck level, initial encounter (principal); S09.90XA Unspecified injury of head, initial encounter; M25.521 Pain in right elbow; M19.90 Unspecified osteoarthritis, unspecified site; Z88.8 Allergy status to other drugs, medicaments and biological substances; W01.0XXA Fall on same level from slipping, tripping and stumbling without subsequent striking against object, initial encounter; Y93.01 Activity, walking, marching and hiking; Y92.89 Other specified places as the place of occurrence of the external cause; Y99.8 Other external cause status
CPT/HCPCS: 73080; 99284

== ENCOUNTER 2018-09-17 12:57 | Inpatient (IN) | payer MEDICAID, MEDICARE ==
[~2018-09-17] VITALS: Ht 160 cm; Wt 62.1 kg
[2018-09-17] MEDS ORDERED: KETOROLAC 30MG/ML VIAL IV ONE (14:30)
[2018-09-17 15:01] LABS: MEAN CORPUSCULAR HEMOGLOBIN 22.9 pg (28.0-32.0); MEAN CORPUSCULAR VOLUME 72.4 fL (81.0-99.0); PLATELET 323 x1000/uL (130-400); RED BLOOD CELL COUNT 2.84 mill/uL (4.2-5.4); RED CELL DISTRIBUTION WIDTH 21.7 % (11.6-14.6)
[2018-09-17 15:05] LABS: CHLORIDE 103 mEq/L (98-107)
[2018-09-17 15:06] LABS: HEMOGLOBIN. 6.5 g/dL (12.0-16.0); INR 1.1; PARTIAL THROMBOPLASTIN TIME 29.2 sec (23.4-31.0); PROTHROMBIN TIME 10.9 sec (9.6-11.0)
[2018-09-17 15:07] LABS: HEMATOCRIT. 20.5 % (36.0-48.0)
[2018-09-17 15:24] LABS: CLARITY URINE CLOUDY (CLEAR); COLOR URINE YELLOW (YELLOW); KETONES URINE TRACE (NEGATIVE); LEUKOCYTE ESTERASE URINE 1+ (NEGATIVE); NITRITE URINE NEGATIVE (NEGATIVE); OCCULT BLOOD URINE 2+ (NEGATIVE); PROTEIN URINE NEGATIVE (NEGATIVE); SPECIFIC GRAVITY URINE 1.017 (1.005-1.030)
[2018-09-17 15:29] LABS: PLATELET ESTIMATE NORMAL
[2018-09-17 15:57] LABS: INR 1.1; PARTIAL THROMBOPLASTIN TIME 28.9 sec (23.4-31.0)
[2018-09-17 21:30] VITALS: BP 126/65
[2018-09-17 23:00] VITALS: BP 126/65
[2018-09-18] VITALS: BP 129/81
[2018-09-18] MEDS ORDERED: TEMAZEPAM 15MG CAPSULE PO PRN (01:45)
[2018-09-18] MEDS: ACETAMINOPHEN WITH CODEINE 300/60MG TABLET PO PRN ×3 (02:42→16:10)
[2018-09-18 04:00] VITALS: BP 112/61
[2018-09-18] MEDS: FOLIC ACID/VITAMIN B COMP W-C TABLET PO SCH (09:13)
[2018-09-18] MEDS: FERROUS SULFATE 325MG TABLET PO SCH ×3 (09:13→16:06)
[2018-09-18] MEDS: GABAPENTIN 300MG CAPSULE PO SCH ×2 (09:14→16:06)
[2018-09-18] MEDS ORDERED: POTASSIUM CHLORIDE 20MEQ/PACKET PO NR (09:15)
[2018-09-18] MEDS ORDERED: POTASSIUM CHLORIDE 20MEQ TABLET SR PO NR (09:15)
[2018-09-18 10:04] LABS: BASOPHILS % 0.6 % (0.0-2.0); EOSINOPHILS % 4.8 % (0.0-5.0); HEMATOCRIT. 24.4 % (36.0-48.0); HEMOGLOBIN. 7.8 g/dL (12.0-16.0); LYMPHOCYTES % 30.1 % (20.0-50.0); MEAN CORPUSCULAR HEMOGLOBIN 24.5 pg (28.0-32.0); MEAN CORPUSCULAR VOLUME 76.7 fL (81.0-99.0); MEAN PLATELET VOLUME 6.6 fl (7.4-10.4); MONOCYTES % 12.1 % (2.0-8.0); NEUTROPHILS % 52.4 % (40.0-76.0); PLATELET 280 x1000/uL (130-400); RED BLOOD CELL COUNT 3.18 mill/uL (4.2-5.4); RED CELL DISTRIBUTION WIDTH 23.7 % (11.6-14.6)
[2018-09-18 10:14] LABS: CHLORIDE 108 mEq/L (98-107)
[2018-09-18] MEDS: CARISOPRODOL 350 MG TABLET PO SCH ×3 (11:17→23:27)
[2018-09-18] MEDS: HYDROXYZINE 25MG TABLET PO PRN (11:17)
[2018-09-18 20:00] VITALS: BP_SYST 103; BP_SYST 137; BP_DIAS 50
[2018-09-18] MEDS: METHYLPREDNISOLONE SOD SUCC 40 MG/ML VIAL IV SCH (23:27)
[2018-09-19 00:20] VITALS: BP 129/77
[2018-09-19 03:23] VITALS: BP 120/66
[2018-09-19] MEDS: HYDROCODONE/ACETAMINOPHEN 10/325MG TABLET PO PRN ×2 (03:25→19:53)
[2018-09-19] MEDS: HYDROXYZINE 25MG TABLET PO PRN (05:57)
[2018-09-19] MEDS: METHYLPREDNISOLONE SOD SUCC 40 MG/ML VIAL IV SCH ×3 (05:57→17:14)
[2018-09-19] MEDS: CARISOPRODOL 350 MG TABLET PO SCH ×3 (05:57→17:14)
[2018-09-19 07:16] LABS: BASOPHILS % 0.1 % (0.0-2.0); EOSINOPHILS % 0.2 % (0.0-5.0); HEMATOCRIT. 26.4 % (36.0-48.0); HEMOGLOBIN. 8.3 g/dL (12.0-16.0); LYMPHOCYTES % 22.4 % (20.0-50.0); MEAN CORPUSCULAR HEMOGLOBIN 24.2 pg (28.0-32.0); MEAN PLATELET VOLUME 6.8 fl (7.4-10.4); MONOCYTES % 3.9 % (2.0-8.0); NEUTROPHILS % 73.4 % (40.0-76.0); PLATELET 342 x1000/uL (130-400); RED BLOOD CELL COUNT 3.42 mill/uL (4.2-5.4); RED CELL DISTRIBUTION WIDTH 24.1 % (11.6-14.6)
[2018-09-19 08:00] VITALS: BP 111/61
[2018-09-19] MEDS: FOLIC ACID/VITAMIN B COMP W-C TABLET PO SCH (08:30)
[2018-09-19] MEDS: FERROUS SULFATE 325MG TABLET PO SCH ×3 (08:30→17:14)
[2018-09-19] MEDS: GABAPENTIN 300MG CAPSULE PO SCH ×2 (08:30→17:14)
[2018-09-19 08:40] LABS: CHLORIDE 104 mEq/L (98-107)
[2018-09-19 12:00] VITALS: BP 100/56
[2018-09-19 16:00] VITALS: BP 122/70
[2018-09-19 20:00] VITALS: BP 113/65
[2018-09-20] VITALS: BP 116/62
[2018-09-20] MEDS: CARISOPRODOL 350 MG TABLET PO SCH ×5 (00:48→23:52)
[2018-09-20] MEDS: METHYLPREDNISOLONE SOD SUCC 40 MG/ML VIAL IV SCH ×5 (00:50→23:52)
[2018-09-20 04:00] VITALS: BP 103/58
[2018-09-20] MEDS: HYDROCODONE/ACETAMINOPHEN 10/325MG TABLET PO PRN ×2 (04:20→20:35)
[2018-09-20] MEDS: FERROUS SULFATE 325MG TABLET PO SCH ×3 (06:22→18:00)
[2018-09-20 08:11] VITALS: BP 105/60
[2018-09-20] MEDS: GABAPENTIN 300MG CAPSULE PO SCH ×2 (08:44→18:00)
[2018-09-20] MEDS: FOLIC ACID/VITAMIN B COMP W-C TABLET PO SCH (08:44)
[2018-09-20] MEDS: ACETAMINOPHEN WITH CODEINE 300/60MG TABLET PO PRN ×2 (08:51→16:13)
[2018-09-20 12:00] VITALS: BP 100/59
[2018-09-20 16:00] VITALS: BP 112/64
[2018-09-20 20:00] VITALS: BP 110/68
[2018-09-20] MEDS: HYDROXYZINE 25MG TABLET PO PRN (20:34)
[2018-09-20] MEDS: ACETAMINOPHEN 325MG TABLET PO PRN (22:34)
[2018-09-21] VITALS: BP 111/65
[2018-09-21 04:00] VITALS: BP 102/58
[2018-09-21] MEDS: METHYLPREDNISOLONE SOD SUCC 40 MG/ML VIAL IV SCH ×3 (06:18→17:13)
[2018-09-21] MEDS: FERROUS SULFATE 325MG TABLET PO SCH ×3 (06:18→17:13)
[2018-09-21] MEDS: CARISOPRODOL 350 MG TABLET PO SCH ×4 (06:18→23:58)
[2018-09-21 08:00] VITALS: BP 105/69
[2018-09-21] MEDS: GABAPENTIN 300MG CAPSULE PO SCH ×2 (08:50→17:13)
[2018-09-21] MEDS: FOLIC ACID/VITAMIN B COMP W-C TABLET PO SCH (08:50)
[2018-09-21 09:37] LABS: HEMATOCRIT. 27.1 % (36.0-48.0); HEMOGLOBIN. 8.3 g/dL (12.0-16.0); LYMPHOCYTES % 8.1 % (20.0-50.0); MEAN CORPUSCULAR HEMOGLOBIN 24.5 pg (28.0-32.0); MEAN CORPUSCULAR VOLUME 80.1 fL (81.0-99.0); MEAN PLATELET VOLUME 7.1 fl (7.4-10.4); MONOCYTES % 5.2 % (2.0-8.0); NEUTROPHILS % 86.7 % (40.0-76.0); PLATELET 357 x1000/uL (130-400); RED BLOOD CELL COUNT 3.38 mill/uL (4.2-5.4); RED CELL DISTRIBUTION WIDTH 25.5 % (11.6-14.6)
[2018-09-21 10:13] LABS: CHLORIDE 106 mEq/L (98-107)
[2018-09-21] MEDS: HYDROCODONE/ACETAMINOPHEN 10/325MG TABLET PO PRN (11:18)
[2018-09-21 16:00] VITALS: BP 112/68
[2018-09-21 20:00] VITALS: BP 108/66
[2018-09-22] VITALS: BP 110/65
[2018-09-22] MEDS: METHYLPREDNISOLONE SOD SUCC 40 MG/ML VIAL IV SCH ×3 (02:14→17:18)
[2018-09-22 04:00] VITALS: BP 115/62
[2018-09-22] MEDS: HYDROCODONE/ACETAMINOPHEN 10/325MG TABLET PO PRN ×3 (05:07→21:30)
[2018-09-22] MEDS: CARISOPRODOL 350 MG TABLET PO SCH ×3 (06:53→17:17)
[2018-09-22 08:00] VITALS: BP 109/55
[2018-09-22] MEDS: GABAPENTIN 300MG CAPSULE PO SCH ×2 (09:10→17:17)
[2018-09-22] MEDS: FOLIC ACID/VITAMIN B COMP W-C TABLET PO SCH (09:10)
[2018-09-22] MEDS: FERROUS SULFATE 325MG TABLET PO SCH ×3 (09:10→17:17)
[2018-09-22 12:00] VITALS: BP 105/71
[2018-09-22 15:35] VITALS: BP 104/57
[2018-09-22 20:00] VITALS: BP 105/61
[2018-09-23] VITALS (8 sets, daily range): BP systolic 99–122; BP diastolic 52–70
[2018-09-23] MEDS: METHYLPREDNISOLONE SOD SUCC 40 MG/ML VIAL IV SCH ×3 (01:02→17:55)
[2018-09-23] MEDS: CARISOPRODOL 350 MG TABLET PO SCH ×4 (01:02→17:56)
[2018-09-23 07:29] LABS: BASOPHILS % 0.2 % (0.0-2.0); HEMATOCRIT. 30.4 % (36.0-48.0); HEMOGLOBIN. 9.6 g/dL (12.0-16.0); LYMPHOCYTES % 20.4 % (20.0-50.0); MEAN CORPUSCULAR HEMOGLOBIN 25.1 pg (28.0-32.0); MEAN CORPUSCULAR VOLUME 79.6 fL (81.0-99.0); MEAN PLATELET VOLUME 7.2 fl (7.4-10.4); MONOCYTES % 10.3 % (2.0-8.0); NEUTROPHILS % 69.1 % (40.0-76.0); PLATELET 382 x1000/uL (130-400); RED BLOOD CELL COUNT 3.82 mill/uL (4.2-5.4); RED CELL DISTRIBUTION WIDTH 26.5 % (11.6-14.6)
[2018-09-23 07:32] LABS: CHLORIDE 103 mEq/L (98-107)
[2018-09-23] MEDS: FERROUS SULFATE 325MG TABLET PO SCH ×3 (08:58→17:56)
[2018-09-23] MEDS: HYDROCODONE/ACETAMINOPHEN 10/325MG TABLET PO PRN ×2 (08:58→22:45)
[2018-09-23] MEDS: FOLIC ACID/VITAMIN B COMP W-C TABLET PO SCH (08:58)
[2018-09-23] MEDS: GABAPENTIN 300MG CAPSULE PO SCH ×2 (08:59→17:55)
[2018-09-23] MEDS: ACETAMINOPHEN 325MG TABLET PO PRN (21:19)
[2018-09-24 00:01] VITALS: BP 103/58
[2018-09-24] MEDS: CARISOPRODOL 350 MG TABLET PO SCH ×5 (00:02→23:22)
[2018-09-24] MEDS: METHYLPREDNISOLONE SOD SUCC 40 MG/ML VIAL IV SCH ×3 (01:35→17:51)
[2018-09-24 04:00] VITALS: BP 100/58
[2018-09-24 07:18] LABS: FOLIC ACID (FOLATE) SERUM 11.5 ng/mL (>5.38)
[2018-09-24 08:00] VITALS: BP 106/64
[2018-09-24] MEDS: GABAPENTIN 300MG CAPSULE PO SCH ×2 (09:01→17:52)
[2018-09-24] MEDS: FERROUS SULFATE 325MG TABLET PO SCH ×3 (09:01→17:51)
[2018-09-24] MEDS: FOLIC ACID/VITAMIN B COMP W-C TABLET PO SCH (09:01)
[2018-09-24] MEDS: HYDROCODONE/ACETAMINOPHEN 10/325MG TABLET PO PRN (10:54)
[2018-09-24 12:00] VITALS: BP 122/73
[2018-09-24 16:00] VITALS: BP 96/58
[2018-09-24 20:00] VITALS: BP 101/62
[2018-09-24] MEDS: ACETAMINOPHEN 325MG TABLET PO PRN (20:36)
[2018-09-25] VITALS: BP 116/59
[2018-09-25] MEDS: HYDROCODONE/ACETAMINOPHEN 10/325MG TABLET PO PRN ×2 (00:23→12:18)
[2018-09-25] MEDS: METHYLPREDNISOLONE SOD SUCC 40 MG/ML VIAL IV SCH ×2 (02:50→11:05)
[2018-09-25 04:00] VITALS: BP 106/64
[2018-09-25] MEDS: CARISOPRODOL 350 MG TABLET PO SCH ×2 (05:34→11:05)
[2018-09-25] MEDS: FOLIC ACID/VITAMIN B COMP W-C TABLET PO SCH (08:52)
[2018-09-25] MEDS: GABAPENTIN 300MG CAPSULE PO SCH (08:52)
[2018-09-25] MEDS: FERROUS SULFATE 325MG TABLET PO SCH ×2 (08:52→12:01)
[2018-09-25 09:21] VITALS: BP 107/64
[2018-09-25 12:40] VITALS: BP 122/79
[2018-09-25 13:17] VITALS: BP 122/79
[2018-09-28 04:15] LABS: 25-HYDROXY VITAMIN D3 10 ng/mL (.)
== END 2018-09-25 15:25 | disposition home health service (06) | DRG 546 ==
LOC: EDBD → ER 12:57 → 5WST 17:28 → MERGE 17:28 → ENRESERV 20:17 → 6WST 09-22 18:35
PROVIDERS: ADMIT Internal Medicine; ATTEND Internal Medicine
PROC: 30233N1 Transfusion of Nonautologous Red Blood Cells into Peripheral Vein, Percutaneous Approach (ICD-10-PCS; 2018-09-17)
PROC: 0S9C3ZZ Drainage of Right Knee Joint, Percutaneous Approach (ICD-10-PCS; principal; 2018-09-18)
PROC: 0R9U3ZZ Drainage of Right Metacarpophalangeal Joint, Percutaneous Approach (ICD-10-PCS; 2018-09-18)
PROC: 0R9J3ZZ Drainage of Right Shoulder Joint, Percutaneous Approach (ICD-10-PCS; 2018-09-21)
PROC: 0R9U3ZZ Drainage of Right Metacarpophalangeal Joint, Percutaneous Approach (ICD-10-PCS; 2018-09-21)
DX: M05.9 Rheumatoid arthritis with rheumatoid factor, unspecified (principal); E44.0 Moderate protein-calorie malnutrition; M54.5 Low back pain; M32.9 Systemic lupus erythematosus, unspecified; M35.3 Polymyalgia rheumatica; E53.8 Deficiency of other specified B group vitamins; E55.9 Vitamin D deficiency, unspecified; L29.9 Pruritus, unspecified; D64.9 Anemia, unspecified; R26.9 Unspecified abnormalities of gait and mobility; M13.0 Polyarthritis, unspecified; B19.20 Unspecified viral hepatitis C without hepatic coma; G89.4 Chronic pain syndrome; Z96.659 Presence of unspecified artificial knee joint; M48.02 Spinal stenosis, cervical region; M75.02 Adhesive capsulitis of left shoulder; M75.01 Adhesive capsulitis of right shoulder; Z68.24 Body mass index [BMI] 24.0-24.9, adult; Z87.891 Personal history of nicotine dependence
CPT/HCPCS: 36415; 71045; 80048; 82306; 82607; 82746; 82962; 83880; 84443; 84484; 85651; 86431; 86850; 86880; 86900; 86920; 93005; 97116; 97162; 97166; 97530; 99285; J1885; J2920; P9016

== ENCOUNTER 2018-10-03 00:25 | Emergency (ER) | payer MEDICARE ==
[~2018-10-03] VITALS: Ht 160 cm; Wt 75.0 kg
[2018-10-03] MEDS ORDERED: SODIUM CHLORIDE 0.9% 1,000 ML IV ONE (03:00)
[2018-10-03] MEDS ORDERED: MORPHINE SULFATE 4 MG/ML CPJ (NOT FOR IM USE) IV ONE ×3 (03:00→11:45)
[2018-10-03] MEDS ORDERED: ONDANSETRON HCL 4MG/2ML INJ IV ONE (03:00)
[2018-10-03 03:25] LABS: HEMATOCRIT. 30.1 % (36.0-48.0); HEMOGLOBIN. 9.4 g/dL (12.0-16.0); MEAN CORPUSCULAR HEMOGLOBIN 26.1 pg (28.0-32.0); MEAN CORPUSCULAR VOLUME 83.4 fL (81.0-99.0); MEAN PLATELET VOLUME 6.7 fl (7.4-10.4); PLATELET 414 x1000/uL (130-400); RED BLOOD CELL COUNT 3.61 mill/uL (4.2-5.4); RED CELL DISTRIBUTION WIDTH 29.9 % (11.6-14.6)
[2018-10-03 03:31] LABS: CHLORIDE 109 mEq/L (98-107)
[2018-10-03 03:38] LABS: PROTHROMBIN TIME 10.6 sec (9.6-11.0)
[2018-10-03 04:04] LABS: PLATELET ESTIMATE SLIGHTLY INCREASED
[2018-10-03] MEDS ORDERED: PROPOFOL 200MG/20ML VIAL IV ONE ×2 (05:45→06:29)
[2018-10-03] MEDS ORDERED: KETAMINE HCL 50 MG/ML 10ML ONE (06:14)
[2018-10-03 10:14] LABS: CLARITY URINE CLEAR (CLEAR); COLOR URINE YELLOW (YELLOW); KETONES URINE TRACE (NEGATIVE); LEUKOCYTE ESTERASE URINE NEGATIVE (NEGATIVE); NITRITE URINE NEGATIVE (NEGATIVE); OCCULT BLOOD URINE NEGATIVE (NEGATIVE); PH URINE 5.5 (4.5-8.0); PROTEIN URINE TRACE (NEGATIVE); SPECIFIC GRAVITY URINE 1.021 (1.005-1.030)
[2018-10-03 12:21] VITALS: BP 118/62
== END 2018-10-03 13:30 | disposition short-term general hospital (02) ==
LOC: ER 00:25 → EDBD 00:25 → MERGE 00:25 → ER 13:30
DX: M25.511 Pain in right shoulder (principal); M25.512 Pain in left shoulder; R11.0 Nausea; F17.200 Nicotine dependence, unspecified, uncomplicated; Z96.652 Presence of left artificial knee joint; Z88.8 Allergy status to other drugs, medicaments and biological substances
CPT/HCPCS: 36415; 73030; 74176; 80053; 81003; 83690; 85025; 85610; 93005; 96374; 96375; 96376; 99285; J2270; J2405; J2704; J3490; A4565; L3670

== ENCOUNTER 2018-12-20 20:02 | Inpatient (IN) | payer MEDICARE, MEDICAID ==
[~2018-12-20] VITALS: Ht 157.5 cm; Wt 61.8 kg
[2018-12-20] MEDS ORDERED: SODIUM CHLORIDE 0.9% 1000ML BAG (SEPSIS BOLUS) IV ONE (21:15)
[2018-12-20] MEDS ORDERED: CEFTRIAXONE 1 G PREMIX 50 ML IV ONE (21:15)
[2018-12-20 22:36] LABS: BASOPHILS % 0.5 % (0.0-2.0); EOSINOPHILS % 0.2 % (0.0-5.0); HEMATOCRIT. 23.3 % (36.0-48.0); HEMOGLOBIN. 7.2 g/dL (12.0-16.0); LYMPHOCYTES % 11.5 % (20.0-50.0); MEAN CORPUSCULAR HEMOGLOBIN 22.7 pg (28.0-32.0); MEAN CORPUSCULAR VOLUME 73.7 fL (81.0-99.0); MEAN PLATELET VOLUME 6.5 fl (7.4-10.4); MONOCYTES % 5.7 % (2.0-8.0); NEUTROPHILS % 82.1 % (40.0-76.0); PLATELET 752 x1000/uL (130-400); RED BLOOD CELL COUNT 3.16 mill/uL (4.2-5.4); RED CELL DISTRIBUTION WIDTH 21.7 % (11.6-14.6)
[2018-12-20 22:41] LABS: CHLORIDE 101 mEq/L (98-107)
[2018-12-20] MEDS ORDERED: MORPHINE SULFATE 4 MG/ML CPJ (NOT FOR IM USE) IV STA (23:07)
[2018-12-20] MEDS ORDERED: ONDANSETRON HCL 4MG/2ML INJ IV STA (23:07)
[2018-12-20] MEDS ORDERED: HYDROCORTISONE SOD SUCCINATE 100 MG/2 ML VIAL IV ONE (23:15)
[2018-12-20 23:30] LABS: INR 1.1; PROTHROMBIN TIME 11.7 sec (9.6-11.0)
[2018-12-20] MEDS ORDERED: TEMAZEPAM 15MG CAPSULE PO PRN (23:45)
[2018-12-20] MEDS ORDERED: HYDROCODONE/ACETAMINOPHEN 5/325MG TABLET PO PRN (23:45)
[2018-12-20] MEDS ORDERED: PIPERACILLIN/TAZ 3.375G PREMIX 50 ML IV SCH (23:45)
[2018-12-20] MEDS ORDERED: ONDANSETRON HCL 4MG/2ML INJ IV PRN (23:45)
[2018-12-21] VITALS (15 sets, daily range): BP systolic 85–104; BP diastolic 45–63
[2018-12-21] MEDS ORDERED: IOHEXOL-300 100 ML BOTTLE ONE (00:29)
[2018-12-21] MEDS: SODIUM CHLORIDE 0.9% 1,000 ML IV SCH ×3 (00:30→16:46)
[2018-12-21] MEDS ORDERED: VANCOMYCIN 1 G PREMIX 200 ML IV SCH (00:30)
[2018-12-21] MEDS ORDERED: VANCOMYCIN 1 G PREMIX 200 ML IV ONE (00:45)
[2018-12-21] MEDS: PIPERACILLIN/TAZ 3.375G PREMIX 50 ML IV NR ×2 (02:00→04:25)
[2018-12-21 05:00] LABS: MEAN CORPUSCULAR HEMOGLOBIN 22.6 pg (28.0-32.0); MEAN CORPUSCULAR VOLUME 73.7 fL (81.0-99.0); MEAN PLATELET VOLUME 6.1 fl (7.4-10.4); PLATELET 524 x1000/uL (130-400); RED BLOOD CELL COUNT 2.61 mill/uL (4.2-5.4); RED CELL DISTRIBUTION WIDTH 21.6 % (11.6-14.6)
[2018-12-21 05:04] LABS: CHLORIDE 108 mEq/L (98-107)
[2018-12-21 05:05] LABS: HEMOGLOBIN. 5.9 g/dL (12.0-16.0)
[2018-12-21 05:06] LABS: HEMATOCRIT. 19.3 % (36.0-48.0)
[2018-12-21 05:33] LABS: PLATELET ESTIMATE INCREASED
[2018-12-21] MEDS: GABAPENTIN 300MG CAPSULE PO SCH ×2 (09:13→16:46)
[2018-12-21] MEDS: MORPHINE SULFATE 2 MG/ML CPJ (NOT FOR IM USE) IV PRN (09:13)
[2018-12-21] MEDS: ENOXAPARIN 40MG/0.4ML SYR SUBCUT SCH (09:33)
[2018-12-21] MEDS ORDERED: VANCOMYCIN 750 MG PREMIX 150 ML IV SCH (10:00)
[2018-12-21] MEDS: PIPERACILLIN/TAZ 3.375G PREMIX 50 ML IV SCH ×3 (10:00→21:04)
[2018-12-21] MEDS ORDERED: DOCUSATE SODIUM 100MG CAPSULE PO PRN (19:15)
[2018-12-21] MEDS ORDERED: ACETAMINOPHEN 325MG TABLET PO PRN (19:15)
[2018-12-21] MEDS ORDERED: ONDANSETRON HCL 4MG/2ML INJ IV PRN (19:15)
[2018-12-21] MEDS ORDERED: NA PHOS,M-B/NA PHOS,DI-BA ENEMA 118ML PR PRN (19:15)
[2018-12-21] MEDS: ACETAMINOPHEN 325MG TABLET PO PRN (20:42)
[2018-12-21] MEDS: VANCOMYCIN 750 MG PREMIX 150 ML IV SCH (20:51)
[2018-12-21] MEDS ORDERED: DIPHENHYDRAMINE 50MG/ML VIAL IV PRN (22:30)
[2018-12-21] MEDS ORDERED: FUROSEMIDE 40MG/4ML VIAL IVP NR (22:30)
[2018-12-22] VITALS (8 sets, daily range): BP systolic 77–153; BP diastolic 46–78
[2018-12-22 01:43] LABS: HEMATOCRIT 30.2 % (36.0-48.0); HEMOGLOBIN 9.7 g/dL (12.0-16.0)
[2018-12-22] MEDS ORDERED: FUROSEMIDE 40MG/4ML VIAL IVP NR (03:00)
[2018-12-22 06:41] LABS: BASOPHILS % 0.3 % (0.0-2.0); EOSINOPHILS % 0.8 % (0.0-5.0); HEMATOCRIT. 31.3 % (36.0-48.0); HEMOGLOBIN. 10.3 g/dL (12.0-16.0); LYMPHOCYTES % 14.5 % (20.0-50.0); MEAN CORPUSCULAR HEMOGLOBIN 25.8 pg (28.0-32.0); MEAN CORPUSCULAR VOLUME 78.6 fL (81.0-99.0); MEAN PLATELET VOLUME 6.4 fl (7.4-10.4); MONOCYTES % 7.6 % (2.0-8.0); NEUTROPHILS % 76.8 % (40.0-76.0); PLATELET 591 x1000/uL (130-400); RED BLOOD CELL COUNT 3.99 mill/uL (4.2-5.4); RED CELL DISTRIBUTION WIDTH 21.3 % (11.6-14.6)
[2018-12-22 06:43] LABS: CHLORIDE 109 mEq/L (98-107)
[2018-12-22] MEDS: PIPERACILLIN/TAZOBACTAM 3.375 G in DEXT 5% WATER 100 ML IV SCH ×3 (06:58→16:36)
[2018-12-22] MEDS: SODIUM CHLORIDE 0.9% 1,000 ML IV SCH ×3 (06:59→16:29)
[2018-12-22] MEDS: GABAPENTIN 300MG CAPSULE PO SCH ×2 (08:45→16:36)
[2018-12-22] MEDS: VANCOMYCIN 750 MG PREMIX 150 ML IV SCH (08:45)
[2018-12-22] MEDS: ENOXAPARIN 40MG/0.4ML SYR SUBCUT SCH (08:47)
[2018-12-22] MEDS ORDERED: POTASSIUM CHLORIDE 20MEQ TABLET SR PO NR (10:30)
[2018-12-22] MEDS: MORPHINE SULFATE 2 MG/ML CPJ (NOT FOR IM USE) IV PRN ×2 (11:43→20:00)
[2018-12-22] MEDS: VANCOMYCIN 1 G PREMIX 200 ML IV SCH (23:06)
[2018-12-22] MEDS: HYDROMORPHONE HCL/PF 2MG/ML CPJ IV PRN (23:23)
[2018-12-23] VITALS: BP 118/78
[2018-12-23] MEDS: PIPERACILLIN/TAZOBACTAM 3.375 G in DEXT 5% WATER 100 ML IV SCH ×4 (01:55→18:57)
[2018-12-23] MEDS: SODIUM CHLORIDE 0.9% 1,000 ML IV SCH ×2 (02:22→16:33)
[2018-12-23 04:00] VITALS: BP 120/70
[2018-12-23] MEDS: MORPHINE SULFATE 2 MG/ML CPJ (NOT FOR IM USE) IV PRN (05:16)
[2018-12-23] MEDS: ACETAMINOPHEN 325MG TABLET PO PRN (06:45)
[2018-12-23 08:00] VITALS: BP 107/57
[2018-12-23] MEDS: GABAPENTIN 300MG CAPSULE PO SCH ×2 (08:53→16:31)
[2018-12-23] MEDS: VANCOMYCIN 1 G PREMIX 200 ML IV SCH ×2 (08:53→20:09)
[2018-12-23] MEDS: ENOXAPARIN 40MG/0.4ML SYR SUBCUT SCH (08:54)
[2018-12-23] MEDS: HYDROMORPHONE HCL/PF 2MG/ML CPJ IV PRN ×4 (08:57→23:32)
[2018-12-23 09:54] LABS: BASOPHILS % 0.3 % (0.0-2.0); EOSINOPHILS % 0.5 % (0.0-5.0); HEMATOCRIT. 29.8 % (36.0-48.0); HEMOGLOBIN. 9.5 g/dL (12.0-16.0); LYMPHOCYTES % 9.4 % (20.0-50.0); MEAN CORPUSCULAR HEMOGLOBIN 25.3 pg (28.0-32.0); MEAN CORPUSCULAR VOLUME 79.5 fL (81.0-99.0); MEAN PLATELET VOLUME 6.3 fl (7.4-10.4); MONOCYTES % 6.6 % (2.0-8.0); NEUTROPHILS % 83.2 % (40.0-76.0); PLATELET 497 x1000/uL (130-400); RED BLOOD CELL COUNT 3.74 mill/uL (4.2-5.4); RED CELL DISTRIBUTION WIDTH 21.6 % (11.6-14.6)
[2018-12-23 10:00] LABS: CHLORIDE 109 mEq/L (98-107)
[2018-12-23] MEDS ORDERED: POTASSIUM CHLORIDE 20MEQ TABLET SR PO NR ×2 (11:45→17:00)
[2018-12-23 12:00] VITALS: BP 126/70
[2018-12-23 20:00] VITALS: BP 114/88
[2018-12-23] MEDS ORDERED: ALBUMIN HUMAN 25GM/500ML (5%) IV NR (23:00)
[2018-12-24] VITALS: BP 165/75
[2018-12-24] MEDS: SODIUM CHLORIDE 0.9% 1,000 ML IV SCH ×4 (00:30→18:10)
[2018-12-24] MEDS: HYDROMORPHONE HCL/PF 2MG/ML CPJ IV PRN ×4 (03:30→17:08)
[2018-12-24 04:00] VITALS: BP 130/76
[2018-12-24] MEDS: PIPERACILLIN/TAZOBACTAM 3.375 G in DEXT 5% WATER 100 ML IV SCH ×5 (05:45→18:09)
[2018-12-24 06:48] LABS: BASOPHILS % 0.3 % (0.0-2.0); EOSINOPHILS % 0.4 % (0.0-5.0); HEMATOCRIT. 27.1 % (36.0-48.0); HEMOGLOBIN. 8.3 g/dL (12.0-16.0); LYMPHOCYTES % 8.2 % (20.0-50.0); MEAN CORPUSCULAR HEMOGLOBIN 24.4 pg (28.0-32.0); MEAN CORPUSCULAR VOLUME 79.5 fL (81.0-99.0); MEAN PLATELET VOLUME 6.4 fl (7.4-10.4); MONOCYTES % 5.4 % (2.0-8.0); NEUTROPHILS % 85.7 % (40.0-76.0); PLATELET 463 x1000/uL (130-400); RED BLOOD CELL COUNT 3.41 mill/uL (4.2-5.4); RED CELL DISTRIBUTION WIDTH 21.6 % (11.6-14.6)
[2018-12-24 07:29] LABS: CHLORIDE 113 mEq/L (98-107)
[2018-12-24 08:00] VITALS: BP 105/70
[2018-12-24] MEDS: ENOXAPARIN 40MG/0.4ML SYR SUBCUT SCH (08:41)
[2018-12-24] MEDS: GABAPENTIN 300MG CAPSULE PO SCH ×2 (08:41→17:22)
[2018-12-24] MEDS: VANCOMYCIN 1 G PREMIX 200 ML IV SCH (08:42)
[2018-12-24 12:00] VITALS: BP 99/61
[2018-12-24 16:00] VITALS: BP 112/71
[2018-12-24 20:00] VITALS: BP 133/76
[2018-12-24] MEDS: VANCOMYCIN 750 MG PREMIX 150 ML IV SCH (20:31)
[2018-12-25] VITALS: BP 130/78
[2018-12-25] MEDS: PIPERACILLIN/TAZOBACTAM 3.375 G in DEXT 5% WATER 100 ML IV SCH ×4 (00:04→18:00)
[2018-12-25] MEDS: SODIUM CHLORIDE 0.9% 1,000 ML IV SCH ×3 (00:09→16:30)
[2018-12-25] MEDS: HYDROMORPHONE HCL/PF 2MG/ML CPJ IV PRN ×4 (00:13→20:47)
[2018-12-25 04:00] VITALS: BP 117/81
[2018-12-25 08:00] VITALS: BP 137/76
[2018-12-25] MEDS: VANCOMYCIN 750 MG PREMIX 150 ML IV SCH ×2 (09:41→21:08)
[2018-12-25] MEDS: GABAPENTIN 300MG CAPSULE PO SCH ×2 (09:41→17:00)
[2018-12-25] MEDS: ENOXAPARIN 40MG/0.4ML SYR SUBCUT SCH (10:12)
[2018-12-25 12:00] VITALS: BP 153/72
[2018-12-25 16:00] VITALS: BP 135/74
[2018-12-25 20:00] VITALS: BP 139/94
[2018-12-25] MEDS ORDERED: AMLODIPINE 5MG TABLET PO PRN (20:30)
[2018-12-26] VITALS: BP 145/80
[2018-12-26] MEDS: ACETAMINOPHEN 325MG TABLET PO PRN (01:01)
[2018-12-26] MEDS: PIPERACILLIN/TAZOBACTAM 3.375 G in DEXT 5% WATER 100 ML IV SCH ×4 (01:01→18:05)
[2018-12-26] MEDS: SODIUM CHLORIDE 0.9% 1,000 ML IV SCH ×3 (01:02→16:30)
[2018-12-26 04:00] VITALS: BP 93/54
[2018-12-26] MEDS: CARISOPRODOL 350 MG TABLET PO PRN (05:31)
[2018-12-26 08:00] VITALS: BP 116/64
[2018-12-26] MEDS: ENOXAPARIN 40MG/0.4ML SYR SUBCUT SCH (09:30)
[2018-12-26] MEDS: GABAPENTIN 300MG CAPSULE PO SCH ×2 (09:30→18:05)
[2018-12-26] MEDS: VANCOMYCIN 750 MG PREMIX 150 ML IV SCH (09:30)
[2018-12-26 09:39] LABS: BASOPHILS % 0.3 % (0.0-2.0); EOSINOPHILS % 0.9 % (0.0-5.0); HEMATOCRIT. 28.8 % (36.0-48.0); LYMPHOCYTES % 12.8 % (20.0-50.0); MEAN CORPUSCULAR HEMOGLOBIN 25.1 pg (28.0-32.0); MEAN CORPUSCULAR VOLUME 80.4 fL (81.0-99.0); MEAN PLATELET VOLUME 6.2 fl (7.4-10.4); MONOCYTES % 6.9 % (2.0-8.0); NEUTROPHILS % 79.1 % (40.0-76.0); PLATELET 410 x1000/uL (130-400); RED BLOOD CELL COUNT 3.58 mill/uL (4.2-5.4); RED CELL DISTRIBUTION WIDTH 22.2 % (11.6-14.6)
[2018-12-26 09:46] LABS: CHLORIDE 115 mEq/L (98-107)
[2018-12-26] MEDS: HYDROMORPHONE HCL/PF 2MG/ML CPJ IV PRN (09:52)
[2018-12-26] MEDS ORDERED: POTASSIUM CHLORIDE 20MEQ TABLET SR PO NR (10:41)
[2018-12-26 12:00] VITALS: BP 118/97
[2018-12-26] MEDS ORDERED: METOCLOPRAMIDE HCL 10MG TABLET PO SCH (15:24)
[2018-12-26] MEDS ORDERED: SORBITOL 70% SOLN 30ML PO SCH (15:25)
[2018-12-26 16:00] VITALS: BP 138/80
[2018-12-26] MEDS: BISACODYL 5MG TABLET PO SCH ×3 (16:29→21:32)
[2018-12-26] MEDS: MEGESTROL ACETATE 400 MG/10 ML UDC PO SCH (16:30)
[2018-12-26] MEDS ORDERED: SORBITOL 70% SOLN 30ML PO NR (18:00)
[2018-12-26 20:00] VITALS: BP 133/65
[2018-12-26 20:18] LABS: CHLORIDE 117 mEq/L (98-107)
[2018-12-26] MEDS: HYDROCODONE/ACETAMINOPHEN 5/325MG TABLET PO PRN (21:32)
[2018-12-27] VITALS: BP 131/82
[2018-12-27] MEDS ORDERED: MAGNESIUM SULFATE 1GM/2ML VIAL IM ONE
[2018-12-27] MEDS: PIPERACILLIN/TAZOBACTAM 3.375 G in DEXT 5% WATER 100 ML IV SCH ×4 (00:34→17:10)
[2018-12-27] MEDS: SODIUM CHLORIDE 0.9% 1,000 ML IV SCH ×3 (00:35→17:10)
[2018-12-27] MEDS ORDERED: MAGNESIUM 2 G PREMIX 50 ML IV NR (01:00)
[2018-12-27 04:00] VITALS: BP 114/75
[2018-12-27] MEDS: HYDROCODONE/ACETAMINOPHEN 5/325MG TABLET PO PRN ×2 (07:01→23:36)
[2018-12-27 08:00] VITALS: BP 132/72
[2018-12-27] MEDS: GABAPENTIN 300MG CAPSULE PO SCH ×2 (08:52→17:10)
[2018-12-27] MEDS: MEGESTROL ACETATE 400 MG/10 ML UDC PO SCH ×2 (08:52→17:10)
[2018-12-27] MEDS: ENOXAPARIN 40MG/0.4ML SYR SUBCUT SCH (08:52)
[2018-12-27 10:33] LABS: CHLORIDE 119 mEq/L (98-107)
[2018-12-27 10:57] LABS: FOLIC ACID (FOLATE) SERUM 4.6 ng/mL (>5.38)
[2018-12-27] MEDS ORDERED: POTASSIUM CHLORIDE 20MEQ TABLET SR PO NR (11:45)
[2018-12-27 12:00] VITALS: BP 130/82
[2018-12-27] MEDS ORDERED: MIDAZOLAM HCL 5 MG/5 ML VIAL ONE ×2 (12:35→13:32)
[2018-12-27] MEDS ORDERED: FENTANYL CITRATE/PF 50MCG/ML 2ML VIAL ONE (12:35)
[2018-12-27] MEDS ORDERED: FENTANYL CITRATE/PF 50MCG/ML 2ML VIAL IV ONE (12:55)
[2018-12-27] MEDS ORDERED: MIDAZOLAM HCL 5 MG/5 ML VIAL IV ONE (13:31)
[2018-12-27 16:00] VITALS: BP 143/92
[2018-12-27 20:00] VITALS: BP 126/76
[2018-12-28] VITALS: BP 134/67
[2018-12-28] MEDS: PIPERACILLIN/TAZOBACTAM 3.375 G in DEXT 5% WATER 100 ML IV SCH ×4 (00:06→18:27)
[2018-12-28] MEDS: SODIUM CHLORIDE 0.9% 1,000 ML IV SCH ×3 (00:06→18:27)
[2018-12-28 04:00] VITALS: BP 107/65
[2018-12-28] MEDS: HYDROCODONE/ACETAMINOPHEN 5/325MG TABLET PO PRN ×3 (05:15→16:50)
[2018-12-28 08:00] VITALS: BP 154/68
[2018-12-28] MEDS: FOLIC ACID 1MG TABLET PO SCH (08:56)
[2018-12-28] MEDS: MEGESTROL ACETATE 400 MG/10 ML UDC PO SCH ×2 (08:56→18:27)
[2018-12-28] MEDS: GABAPENTIN 300MG CAPSULE PO SCH ×2 (08:56→18:27)
[2018-12-28] MEDS: ENOXAPARIN 40MG/0.4ML SYR SUBCUT SCH (08:57)
[2018-12-28 12:00] VITALS: BP 153/109
[2018-12-28 16:00] VITALS: BP 160/91
[2018-12-28 17:24] LABS: BASOPHILS % 0.3 % (0.0-2.0); EOSINOPHILS % 0.9 % (0.0-5.0); HEMOGLOBIN. 8.7 g/dL (12.0-16.0); LYMPHOCYTES % 12.8 % (20.0-50.0); MEAN CORPUSCULAR HEMOGLOBIN 24.9 pg (28.0-32.0); MEAN CORPUSCULAR VOLUME 80.3 fL (81.0-99.0); MEAN PLATELET VOLUME 6.3 fl (7.4-10.4); MONOCYTES % 5.8 % (2.0-8.0); NEUTROPHILS % 80.2 % (40.0-76.0); PLATELET 472 x1000/uL (130-400); RED BLOOD CELL COUNT 3.48 mill/uL (4.2-5.4); RED CELL DISTRIBUTION WIDTH 22.5 % (11.6-14.6)
[2018-12-28 17:31] LABS: CHLORIDE 115 mEq/L (98-107)
[2018-12-28 20:00] VITALS: BP 146/83
[2018-12-29] VITALS: BP 137/81
[2018-12-29] MEDS: SODIUM CHLORIDE 0.9% 1,000 ML IV SCH ×4 (01:07→21:12)
[2018-12-29] MEDS: LOSARTAN POTASSIUM 50 MG TABLET PO SCH ×2 (01:07→10:39)
[2018-12-29 04:00] VITALS: BP 130/89
[2018-12-29] MEDS: HYDROCODONE/ACETAMINOPHEN 5/325MG TABLET PO PRN ×2 (04:56→13:10)
[2018-12-29 05:43] LABS: BASOPHILS % 0.6 % (0.0-2.0); EOSINOPHILS % 0.9 % (0.0-5.0); HEMATOCRIT. 30.4 % (36.0-48.0); HEMOGLOBIN. 9.5 g/dL (12.0-16.0); LYMPHOCYTES % 14.1 % (20.0-50.0); MEAN CORPUSCULAR HEMOGLOBIN 25.1 pg (28.0-32.0); MEAN PLATELET VOLUME 6.5 fl (7.4-10.4); MONOCYTES % 8.1 % (2.0-8.0); NEUTROPHILS % 76.3 % (40.0-76.0); PLATELET 477 x1000/uL (130-400); RED CELL DISTRIBUTION WIDTH 22.6 % (11.6-14.6)
[2018-12-29 05:56] LABS: CHLORIDE 117 mEq/L (98-107)
[2018-12-29 06:02] LABS: PHOSPHORUS 2.9 mg/dL (2.5-4.9)
[2018-12-29 06:05] LABS: T4 FREE 1.43 ng/dL (0.76-1.46)
[2018-12-29] MEDS: MEGESTROL ACETATE 400 MG/10 ML UDC PO SCH ×2 (10:38→16:43)
[2018-12-29] MEDS: GABAPENTIN 300MG CAPSULE PO SCH ×2 (10:38→16:43)
[2018-12-29] MEDS: FOLIC ACID 1MG TABLET PO SCH (10:39)
[2018-12-29] MEDS: ENOXAPARIN 40MG/0.4ML SYR SUBCUT SCH (10:39)
[2018-12-29 12:00] VITALS: BP 116/74
[2018-12-29 16:00] VITALS: BP 131/69
[2018-12-29] MEDS ORDERED: MAGNESIUM 1 G PREMIX 100 ML IV NR (16:00)
[2018-12-29] MEDS: POTASSIUM CHLORIDE 20MEQ TABLET SR PO SCH (16:43)
[2018-12-29 20:00] VITALS: BP 132/69
[2018-12-29] MEDS: NYSTATIN POWDER 15GM TOP SCH (21:12)
[2018-12-30] VITALS: BP 133/70
[2018-12-30] MEDS: HYDROCODONE/ACETAMINOPHEN 5/325MG TABLET PO PRN ×4 (00:11→17:04)
[2018-12-30] MEDS: CARISOPRODOL 350 MG TABLET PO PRN (03:01)
[2018-12-30] MEDS: SODIUM CHLORIDE 0.9% 1,000 ML IV SCH ×2 (05:30→17:04)
[2018-12-30 07:36] LABS: CHLORIDE 119 mEq/L (98-107)
[2018-12-30 07:37] LABS: BASOPHILS % 0.5 % (0.0-2.0); EOSINOPHILS % 0.8 % (0.0-5.0); HEMATOCRIT. 26.6 % (36.0-48.0); HEMOGLOBIN. 8.4 g/dL (12.0-16.0); LYMPHOCYTES % 21.5 % (20.0-50.0); MEAN CORPUSCULAR HEMOGLOBIN 25.2 pg (28.0-32.0); MEAN PLATELET VOLUME 6.5 fl (7.4-10.4); MONOCYTES % 8.2 % (2.0-8.0); PLATELET 459 x1000/uL (130-400); RED BLOOD CELL COUNT 3.33 mill/uL (4.2-5.4); RED CELL DISTRIBUTION WIDTH 22.4 % (11.6-14.6)
[2018-12-30 08:00] VITALS: BP 142/82
[2018-12-30] MEDS: LOSARTAN POTASSIUM 50 MG TABLET PO SCH (10:47)
[2018-12-30] MEDS: POTASSIUM CHLORIDE 20MEQ TABLET SR PO SCH (10:47)
[2018-12-30] MEDS: FOLIC ACID 1MG TABLET PO SCH (10:47)
[2018-12-30] MEDS: GABAPENTIN 300MG CAPSULE PO SCH ×2 (10:47→17:04)
[2018-12-30] MEDS: ENOXAPARIN 40MG/0.4ML SYR SUBCUT SCH (10:48)
[2018-12-30] MEDS: MEGESTROL ACETATE 400 MG/10 ML UDC PO SCH ×2 (10:48→17:03)
[2018-12-30] MEDS: NYSTATIN POWDER 15GM TOP SCH (10:49)
[2018-12-30 12:00] VITALS: BP 139/79
[2018-12-30 16:00] VITALS: BP 143/72
[2018-12-30 17:59] VITALS: BP 143/72
[2018-12-30 20:00] VITALS: BP 131/78
== END 2018-12-30 21:00 | DRG 871 ==
LOC: ER 20:26 → EDBEDREQTM 12-21 00:53 → EDBEDREQ 12-21 00:53 → EDBEDREQSVC 12-21 00:53 → EDBEDREQTM 12-21 05:14 → EDBEDREQ 12-21 05:14 → ENRESERV 12-21 05:40 → 5WST 12-21 08:15
PROVIDERS: ADMIT Internal Medicine; ATTEND Internal Medicine
PROC: 30233N1 Transfusion of Nonautologous Red Blood Cells into Peripheral Vein, Percutaneous Approach (ICD-10-PCS; principal; 2018-12-21)
PROC: 10903ZC Drainage of Amniotic Fluid, Therapeutic from Products of Conception, Percutaneous Approach (ICD-10-PCS; 2018-12-26)
PROC: 0DB78ZX Excision of Stomach, Pylorus, Via Natural or Artificial Opening Endoscopic, Diagnostic (ICD-10-PCS; 2018-12-27)
PROC: 0DBN8ZX Excision of Sigmoid Colon, Via Natural or Artificial Opening Endoscopic, Diagnostic (ICD-10-PCS; 2018-12-27)
DX: A41.01 Sepsis due to Methicillin susceptible Staphylococcus aureus (principal); E43 Unspecified severe protein-calorie malnutrition; G82.50 Quadriplegia, unspecified; G92 Toxic encephalopathy; K29.71 Gastritis, unspecified, with bleeding; E87.2 Acidosis; E55.9 Vitamin D deficiency, unspecified; E87.6 Hypokalemia; I25.10 Atherosclerotic heart disease of native coronary artery without angina pectoris; M06.9 Rheumatoid arthritis, unspecified; M32.9 Systemic lupus erythematosus, unspecified; M54.40 Lumbago with sciatica, unspecified side; Z96.652 Presence of left artificial knee joint; B19.20 Unspecified viral hepatitis C without hepatic coma; F32.9 Major depressive disorder, single episode, unspecified; E53.8 Deficiency of other specified B group vitamins; D50.9 Iron deficiency anemia, unspecified; D12.7 Benign neoplasm of rectosigmoid junction; G89.4 Chronic pain syndrome; K44.9 Diaphragmatic hernia without obstruction or gangrene; K64.8 Other hemorrhoids; M75.00 Adhesive capsulitis of unspecified shoulder; Z87.891 Personal history of nicotine dependence; Z68.24 Body mass index [BMI] 24.0-24.9, adult
CPT/HCPCS: 36415; 71045; 74177; 80048; 80202; 82040; 82270; 82607; 82746; 83605; 83735; 83880; 84100; 84134; 84145; 84439; 84484; 85014; 85018; 86850; 86880; 86900; 86920; 87077; 88305; 88313; 92523; 92610; 93005; 96374; 99152; 99153; 99291; A6261; J0696; J1170; J1650; J1720; J1940; J2250; J2270; J2405; J2543; J3010; J3370; J3475; J7030; J7040; J7060; J8597; P9016; P9041; Q9967; G0500

== ENCOUNTER 2019-01-19 07:59 | Inpatient (IN) | payer MEDICARE, MEDICAID ==
[~2019-01-19] VITALS: Ht 157.5 cm; Wt 51.3 kg
[2019-01-19] MEDS ORDERED: PIPERACILLIN/TAZ 3.375G PREMIX 50 ML IV ONE (08:45)
[2019-01-19] MEDS ORDERED: SODIUM CHLORIDE 0.9% 1000ML BAG (SEPSIS BOLUS) IV ONE (08:45)
[2019-01-19] MEDS ORDERED: VANCOMYCIN 1 G PREMIX 200 ML IV ONE (08:45)
[2019-01-19 09:06] LABS: BASOPHILS % 0.4 % (0.0-2.0); EOSINOPHILS % 0.8 % (0.0-5.0); HEMATOCRIT. 23.5 % (36.0-48.0); HEMOGLOBIN. 7.4 g/dL (12.0-16.0); LYMPHOCYTES % 20.5 % (20.0-50.0); MEAN CORPUSCULAR HEMOGLOBIN 24.9 pg (28.0-32.0); MEAN CORPUSCULAR VOLUME 78.9 fL (81.0-99.0); MEAN PLATELET VOLUME 6.5 fl (7.4-10.4); MONOCYTES % 10.9 % (2.0-8.0); NEUTROPHILS % 67.4 % (40.0-76.0); PLATELET 609 x1000/uL (130-400); RED BLOOD CELL COUNT 2.97 mill/uL (4.2-5.4); RED CELL DISTRIBUTION WIDTH 21.5 % (11.6-14.6)
[2019-01-19 09:12] LABS: CHLORIDE 104 mEq/L (98-107)
[2019-01-19 09:13] LABS: INR 1.1; PROTHROMBIN TIME 11.4 sec (9.6-11.0)
[2019-01-19] MEDS ORDERED: CLONIDINE 0.1MG TABLET PO PRN (10:00)
[2019-01-19] MEDS ORDERED: PIPERACILLIN/TAZ 3.375G PREMIX 50 ML IV SCH (10:00)
[2019-01-19] MEDS ORDERED: ACETAMINOPHEN 650MG/20.3ML UDC GT PRN (10:00)
[2019-01-19] MEDS ORDERED: ENOXAPARIN 40MG/0.4ML SYR SUBCUT SCH ×2 (10:00→12:00)
[2019-01-19] MEDS ORDERED: MAGNESIUM/ALUMINUM HYDROXIDE/SIMETHICONE 30ML UDC PO PRN (10:00)
[2019-01-19] MEDS ORDERED: IPRATROPIUM/ALBUTEROL 0.5-3(2.5)MG/3ML NEB HHN PRN (10:00)
[2019-01-19] MEDS ORDERED: ONDANSETRON HCL 4MG/2ML INJ IV PRN (10:00)
[2019-01-19] MEDS ORDERED: ACETAMINOPHEN 650MG SUPP PR PRN (10:00)
[2019-01-19] MEDS ORDERED: DIPHENHYDRAMINE 50MG/ML VIAL IV PRN (10:00)
[2019-01-19] MEDS ORDERED: NA PHOS,M-B/NA PHOS,DI-BA ENEMA 118ML PR PRN (10:00)
[2019-01-19 11:45] VITALS: BP 102/63
[2019-01-19] MEDS: HYDROCODONE/ACETAMINOPHEN 5/325MG TABLET PO PRN ×2 (12:15→17:16)
[2019-01-19 12:28] VITALS: BP 102/63
[2019-01-19] MEDS: PIPERACILLIN/TAZOBACTAM 3.375 G in DEXT 5% WATER 100 ML IV SCH ×2 (14:19→21:32)
[2019-01-19] MEDS: SODIUM CHLORIDE 0.9% INJ 3ML FLUSH IVF SCH ×2 (15:12→21:34)
[2019-01-19] MEDS ORDERED: CLOP75TA4 PO (15:33)
[2019-01-19] MEDS ORDERED: MULT-230 MT (15:33)
[2019-01-19] MEDS ORDERED: LOSA50TA3 MT (15:33)
[2019-01-19] MEDS ORDERED: POTA20TA82 MT (15:33)
[2019-01-19] MEDS ORDERED: ZINC220T4 MT (15:33)
[2019-01-19] MEDS ORDERED: ASPI-1393 MT (15:33)
[2019-01-19] MEDS ORDERED: ASCO500C15 MT (15:33)
[2019-01-19] MEDS ORDERED: FOLI-43 PO (15:33)
[2019-01-19] MEDS ORDERED: AMLO5TAB4 MT (15:33)
[2019-01-19 16:00] VITALS: BP 95/60
[2019-01-19] MEDS: SODIUM CHLORIDE 0.9% 1,000 ML IV SCH (17:05)
[2019-01-19 20:00] VITALS: BP 109/71
[2019-01-19] MEDS: VANCOMYCIN 750 MG PREMIX 150 ML IV SCH (21:32)
[2019-01-20] VITALS (10 sets, daily range): BP systolic 94–144; BP diastolic 51–77
[2019-01-20] MEDS: SODIUM CHLORIDE 0.9% 1,000 ML IV SCH (05:19)
[2019-01-20] MEDS: PIPERACILLIN/TAZOBACTAM 3.375 G in DEXT 5% WATER 100 ML IV SCH ×4 (05:19→22:04)
[2019-01-20] MEDS: SODIUM CHLORIDE 0.9% INJ 3ML FLUSH IVF SCH ×3 (05:20→22:05)
[2019-01-20 07:10] LABS: BASOPHILS % 0.8 % (0.0-2.0); EOSINOPHILS % 1.7 % (0.0-5.0); LYMPHOCYTES % 26.6 % (20.0-50.0); MEAN CORPUSCULAR HEMOGLOBIN 25.3 pg (28.0-32.0); MEAN PLATELET VOLUME 6.5 fl (7.4-10.4); MONOCYTES % 11.3 % (2.0-8.0); NEUTROPHILS % 59.6 % (40.0-76.0); PLATELET 563 x1000/uL (130-400); RED BLOOD CELL COUNT 2.53 mill/uL (4.2-5.4); RED CELL DISTRIBUTION WIDTH 21.4 % (11.6-14.6)
[2019-01-20 07:54] LABS: HEMOGLOBIN. 6.4 g/dL (12.0-16.0)
[2019-01-20 08:37] LABS: CHLORIDE 104 mEq/L (98-107)
[2019-01-20 08:51] LABS: LDL CHOLESTEROL 64 mg/dL (5-100)
[2019-01-20 08:54] LABS: HDL CHOLESTEROL 36 mg/dL (40-59)
[2019-01-20] MEDS: HYDROCODONE/ACETAMINOPHEN 5/325MG TABLET PO PRN ×2 (09:38→14:14)
[2019-01-20] MEDS: VANCOMYCIN 750 MG PREMIX 150 ML IV SCH ×2 (11:51→22:04)
[2019-01-20] MEDS ORDERED: DIPHENHYDRAMINE 50MG/ML VIAL IV NR (17:45)
[2019-01-20] MEDS: ACETAMINOPHEN 325MG TABLET PO PRN (17:48)
[2019-01-20 21:48] LABS: HEMATOCRIT 24.5 % (36.0-48.0); HEMOGLOBIN 7.9 g/dL (12.0-16.0)
[2019-01-20 22:05] LABS: INR 1.1; PROTHROMBIN TIME 11.7 sec (9.6-11.0)
[2019-01-20] MEDS ORDERED: POTASSIUM CHLORIDE 20MEQ TABLET SR PO SCH (23:15)
[2019-01-21] VITALS: BP 136/81
[2019-01-21] MEDS: HYDROCODONE/ACETAMINOPHEN 5/325MG TABLET PO PRN ×4 (00:33→18:06)
[2019-01-21] MEDS: PIPERACILLIN/TAZOBACTAM 3.375 G in DEXT 5% WATER 100 ML IV SCH ×4 (03:11→21:12)
[2019-01-21 04:00] VITALS: BP 112/61
[2019-01-21] MEDS: SODIUM CHLORIDE 0.9% INJ 3ML FLUSH IVF SCH ×3 (07:00→21:12)
[2019-01-21] MEDS: VANCOMYCIN 750 MG PREMIX 150 ML IV SCH ×2 (09:36→21:12)
[2019-01-21] MEDS: SODIUM CHLORIDE 0.9% 1,000 ML IV SCH ×2 (09:58→21:10)
[2019-01-21 16:57] VITALS: BP 143/83
[2019-01-21 20:00] VITALS: BP 143/81
[2019-01-22] VITALS: BP 138/80
[2019-01-22] MEDS: PIPERACILLIN/TAZOBACTAM 3.375 G in DEXT 5% WATER 100 ML IV SCH ×2 (03:01→08:21)
[2019-01-22 04:00] VITALS: BP 146/82
[2019-01-22] MEDS: SODIUM CHLORIDE 0.9% INJ 3ML FLUSH IVF SCH ×3 (06:00→23:31)
[2019-01-22] MEDS: SODIUM CHLORIDE 0.9% 1,000 ML IV SCH (07:06)
[2019-01-22 08:00] VITALS: BP 145/83
[2019-01-22] MEDS: HYDROCODONE/ACETAMINOPHEN 5/325MG TABLET PO PRN ×2 (08:15→20:13)
[2019-01-22] MEDS: VANCOMYCIN 750 MG PREMIX 150 ML IV SCH (09:34)
[2019-01-22 12:00] VITALS: BP 132/69
[2019-01-22 16:00] VITALS: BP 136/77
[2019-01-22 18:03] LABS: CHLORIDE 108 mEq/L (98-107)
[2019-01-22 18:08] LABS: BASOPHILS % 0.6 % (0.0-2.0); EOSINOPHILS % 1.2 % (0.0-5.0); HEMATOCRIT. 26.6 % (36.0-48.0); HEMOGLOBIN. 8.3 g/dL (12.0-16.0); LYMPHOCYTES % 24.1 % (20.0-50.0); MEAN CORPUSCULAR HEMOGLOBIN 24.9 pg (28.0-32.0); MEAN CORPUSCULAR VOLUME 79.8 fL (81.0-99.0); MEAN PLATELET VOLUME 6.3 fl (7.4-10.4); MONOCYTES % 9.7 % (2.0-8.0); NEUTROPHILS % 64.4 % (40.0-76.0); PLATELET 609 x1000/uL (130-400); RED BLOOD CELL COUNT 3.34 mill/uL (4.2-5.4); RED CELL DISTRIBUTION WIDTH 19.3 % (11.6-14.6)
[2019-01-22 20:00] VITALS: BP 132/79
[2019-01-22] MEDS ORDERED: POTASSIUM CHLORIDE 20MEQ TABLET SR PO NR ×2 (20:45→22:00)
[2019-01-23] VITALS (7 sets, daily range): BP systolic 124–139; BP diastolic 60–99
[2019-01-23] MEDS: VANCOMYCIN 750 MG PREMIX 150 ML IV SCH ×2 (02:15→08:57)
[2019-01-23] MEDS: SODIUM CHLORIDE 0.9% 1,000 ML IV SCH ×2 (02:15→09:21)
[2019-01-23] MEDS: SODIUM CHLORIDE 0.9% INJ 3ML FLUSH IVF SCH ×2 (05:04→14:00)
[2019-01-23] MEDS: HYDROCODONE/ACETAMINOPHEN 5/325MG TABLET PO PRN ×2 (05:24→16:49)
[2019-01-23 07:56] LABS: CHLORIDE 110 mEq/L (98-107)
[2019-01-23] MEDS ORDERED: DILTIAZEM HCL 5MG/ML 5ML VIAL IV SCH (08:45)
[2019-01-23] MEDS: MORPHINE SULFATE 2 MG/ML CPJ (NOT FOR IM USE) IV PRN ×2 (08:56→12:17)
[2019-01-23] MEDS ORDERED: CLOPIDOGREL 75MG TABLET PO SCH (09:00)
[2019-01-23] MEDS ORDERED: ASPIRIN 81MG TABLET PO SCH (09:00)
[2019-01-23] MEDS: METOPROLOL TARTRATE 25MG TABLET PO SCH ×2 (09:00→12:17)
[2019-01-23 09:13] LABS: BASOPHILS % 0.6 % (0.0-2.0); EOSINOPHILS % 1.5 % (0.0-5.0); HEMATOCRIT. 25.8 % (36.0-48.0); HEMOGLOBIN. 8.2 g/dL (12.0-16.0); LYMPHOCYTES % 27.3 % (20.0-50.0); MEAN CORPUSCULAR HEMOGLOBIN 25.5 pg (28.0-32.0); MEAN CORPUSCULAR VOLUME 80.6 fL (81.0-99.0); MEAN PLATELET VOLUME 6.4 fl (7.4-10.4); MONOCYTES % 11.1 % (2.0-8.0); NEUTROPHILS % 59.5 % (40.0-76.0); PLATELET 649 x1000/uL (130-400); RED CELL DISTRIBUTION WIDTH 18.9 % (11.6-14.6)
[2019-01-23] MEDS: GABAPENTIN 300MG CAPSULE PO SCH ×2 (10:16→16:49)
[2019-01-23] MEDS ORDERED: POTASSIUM CHLORIDE INJ 40 MEQ in DEXT 5% WATER 250 ML IV NR (13:00)
[2019-01-23] MEDS ORDERED: CEFAZOLIN 2,000 MG in DEXT 5% WATER 100 ML IV SCH (16:00)
[2019-01-23] MEDS: ACETAMINOPHEN 325MG TABLET PO PRN (19:42)
== END 2019-01-23 20:30 | DRG 872 ==
LOC: ER 07:59 → 8WST 09:36 → EDBEDREQ 09:38 → EDBEDREQTM 09:38 → ENRESERV 09:55
PROVIDERS: ADMIT Family Medicine; ATTEND Family Medicine
PROC: 30233N1 Transfusion of Nonautologous Red Blood Cells into Peripheral Vein, Percutaneous Approach (ICD-10-PCS; principal; 2019-01-20)
DX: A41.01 Sepsis due to Methicillin susceptible Staphylococcus aureus (principal); E87.1 Hypo-osmolality and hyponatremia; L97.419 Non-pressure chronic ulcer of right heel and midfoot with unspecified severity; L97.429 Non-pressure chronic ulcer of left heel and midfoot with unspecified severity; E44.1 Mild protein-calorie malnutrition; M24.572 Contracture, left ankle; D64.9 Anemia, unspecified; M06.9 Rheumatoid arthritis, unspecified; Z96.652 Presence of left artificial knee joint; L89.626 Pressure-induced deep tissue damage of left heel; L89.516 Pressure-induced deep tissue damage of right ankle; D47.3 Essential (hemorrhagic) thrombocythemia; L89.319 Pressure ulcer of right buttock, unspecified stage; L89.159 Pressure ulcer of sacral region, unspecified stage; B18.2 Chronic viral hepatitis C; M32.9 Systemic lupus erythematosus, unspecified; M13.0 Polyarthritis, unspecified; M54.30 Sciatica, unspecified side; Z68.20 Body mass index [BMI] 20.0-20.9, adult; Z74.01 Bed confinement status; Z87.891 Personal history of nicotine dependence; Z79.899 Other long term (current) drug therapy; Z88.8 Allergy status to other drugs, medicaments and biological substances
CPT/HCPCS: 36415; 71045; 73650; 80048; 80061; 80202; 83605; 83880; 84145; 84484; 85014; 85018; 85384; 85651; 86140; 86850; 86900; 86920; 87077; 93005; 99285; A6261; C1893; J0690; J1200; J1650; J2270; J2543; J3370; J3480; J3490; J7030; J7040; J7060; P9016